=== PATIENT | male | born 1940 | race Caucasian/White ===

== ENCOUNTER → 2017-01-03 08:02 | Outpatient (CLI) | payer MEDICARE, OTHER ==
[2013-04-16 08:49] VITALS: BMI 30.5
[~2017-01-03 08:02] MED LIST: B 100 OR; FISH OIL 1,0001 CA1 PO; FLAXSEED OIL1000 MG PO; LOTREL 10/20 CA1 CAP PO; NORCO 10/325 TA1 TA1 PO; PLAVIX75 MG PO
== END | disposition home or self-care (01) ==
LOC: D.RT 12-04 11:00
DX: J44.9 Chronic obstructive pulmonary disease, unspecified (principal)

== ENCOUNTER → 2017-04-18 13:39 | Outpatient (CLI) | payer MEDICARE, OTHER ==
[2013-04-16 08:49] VITALS: BMI 30.5
== END | disposition home or self-care (01) ==
LOC: D.CT 04-09 10:30
DX: R94.2 Abnormal results of pulmonary function studies (principal)

== ENCOUNTER 2018-01-07 05:43 | Day surgery (SDC) | payer MEDICARE ==
[~2018-01-07] VITALS: Ht 177.8 cm; Wt 111.4 kg
--- NOTE | ~2018-01-07 | OP ---
PATIENT NAME: TATYANA MUNGUIA MEDICAL RECORD: [id number] :40 LOCATION:[facility] ADMISSION DATE: SURGEON: TAMIR BALDERAS DO DATE OF OPERATION: 01/07/2018 PROCEDURE: EGD with biopsies. INDICATIONS FOR PROCEDURE: Dysphagia. SCOPE: Olympus video gastroscope. MEDICATIONS: Propofol IV per anesthesia (see anesthesia report). ESTIMATED BLOOD LOSS: Minimal. COMPLICATIONS: None. FINDINGS: Informed consent was given. The patient was made comfortable with the above medication. After reaching an adequate level of sedation by slow IV push, the patient was placed on his left side. The endoscope was advanced under direct visualization through the mouth to the second portion of the duodenum. The upper, middle, and lower thirds of the esophagus appeared normal. At the GE junction, there was some mild evidence of LA class A reflux-induced esophagitis. Cold forcep biopsies were taken at this site. The endoscope was advanced beyond the GE junction into the stomach and retroflexed view of the cardia, where a small sliding hiatal hernia was visualized. In the fundus and body of the stomach, there were a few benign appearing fundic gland type gastric polyps. In the antrum, there was some patchy erythema and granularity consistent with gastritis. Also, in the antrum and prepyloric region, there were a few superficial ulcerations without bleeding stigmata. Random biopsies were taken in the stomach to rule out H. pylori and to submit for histology. The endoscope was advanced beyond the pylorus into the duodenum where the bulb and second portion of the duodenum appeared normal. Random biopsies were taken in the duodenum. The endoscope was withdrawn from the patient. The patient tolerated the procedure well and there were no complications. IMPRESSION: 1. LA class A reflux-induced esophagitis. 2. Small sliding hiatal hernia. 3. Benign fundic gland gastric polyps. 4. Gastritis. 5. Few superficial gastric ulcers without bleeding stigmata. PLAN AND RECOMMENDATIONS: 1. Discharge home when recovery parameters are met. 2. Follow up biopsy specimen results. 3. Start omeprazole or equivalent PPI at 40 mg daily times 60 days followed by an H2 za daily thereafter as needed for symptoms. 4. If biopsies indicate, there is H. pylori, this will be treated. 5. We will order right upper quadrant ultrasound and a gastric emptying scan regarding the patient's epigastric pain, pain with eating, and early satiety. 6. If the patient's dysphagia becomes a persistent symptom, a barium esophagram and/or manometry study will be ordered. at this time, the patient does not complain of dysphagia as much as epigastric pain. OPERATIVE REPORT [id number] TATYANA MUNGUIA TRANSINT:[id number] Voice Confirmation ID: [id number] DOCUMENT ID: [id number] TAMIR BALDERAS DO at 1119 CC: [id number] DICTATION DATE: 01/07/18 0803 AUTO DISMANTLER: 01/07/18 1053 [facility] 01/07/18 [facility] [address] [place] [address]
[2018-01-07] MEDS ORDERED: ZANAFLEX4 MG PO (06:19)
[2018-01-07] MEDS ORDERED: RESTLESS LEGS (06:20)
[2018-01-07] MEDS ORDERED: NEURONTIN 300300 MG PO (06:20)
[2018-01-07 06:38] VITALS: BP 141/73; Ht 177.8 cm; Wt 111.4 kg
[2018-01-07 07:35] LABS: HEMOGLOBIN 14.3 g/dL (13.5-17.5); MCH 30.7 pg (26.0-34.0); MCV 90.1 fL (80.0-100.0); MEAN PLATELET VOLUME 10.4 fL (7.4-10.4); RBC 4.66 10x6/uL (4.20-6.10); RDW 12.6 % (11.5-14.5); WBC 6.9 10x3/uL (4.8-10.8)
== END 2018-01-07 08:57 | disposition home or self-care (01) ==
LOC: D.OPS 05:43
PROVIDERS: Anesthesiology
DX: R13.10 Dysphagia, unspecified (principal); K21.0 Gastro-esophageal reflux disease with esophagitis; K44.9 Diaphragmatic hernia without obstruction or gangrene; K29.70 Gastritis, unspecified, without bleeding; K31.7 Polyp of stomach and duodenum; Z01.812 Encounter for preprocedural laboratory examination; I10 Essential (primary) hypertension; J44.9 Chronic obstructive pulmonary disease, unspecified

== ENCOUNTER → 2018-01-11 08:17 | Outpatient (CLI) | payer MEDICARE ==
[2018-01-07 06:38] VITALS: BMI 35.2
[~2018-01-11 08:17] MED LIST changes: +NEURONTIN 300300 MG PO; +OMEPRAZOLE40 MG PO; +OXYCONTIN15 MG PO; +REQUIP0.25 MG PO; +RESTLESS LEGS; +ROXICODONE15 MG PO; +VITAMIN B COMPL1 TAB PO; +VITAMIN D31000 UNI2 PO; +ZANAFLEX4 MG PO; +ZITHROMAX 500M500 MG PO
== END | disposition home or self-care (01) ==
LOC: D.US 08:17 → D.NM 09:30
DX: R10.13 Epigastric pain (principal); R68.81 Early satiety; R14.0 Abdominal distension (gaseous)

== ENCOUNTER → 2018-01-15 13:07 | Outpatient (CLI) | payer MEDICARE ==
[2018-01-07 06:38] VITALS: BMI 35.2
[2018-01-15 14:07] LABS: ALBUMIN 3.4 g/dL (3.4-5.0); BILIRUBIN - DIRECT 0.09 mg/dL (0.00-0.30); BILIRUBIN - INDIRECT 0.39 mg/dL (0.00-1.00); BILIRUBIN - TOTAL 0.48 mg/dL (0.2-1.3); PROTEIN - SERUM 6.4 g/dL (6.4-8.2)
[2018-01-16 13:17] LABS: IMMUNOGLOBULIN A 147 mg/dL (61-437)
[2018-01-17 10:20] LABS: ANTIGLIADIN IGA 2 units (0-19); ANTIGLIADIN IGG 1 units (0-19)
[2018-01-17 15:24] LABS: T-TRANSGLUTAMINASE IGA <2 U/mL (0-3)
== END | disposition home or self-care (01) ==
LOC: D.LAB 09:00
PROVIDERS: Internal Medicine Gastroenterology
DX: K76.0 Fatty (change of) liver, not elsewhere classified (principal); R10.13 Epigastric pain; R93.8 Abnormal findings on diagnostic imaging of other specified body structures

== ENCOUNTER 2018-01-21 11:17 | Day surgery (SDC) | payer MEDICARE ==
[~2018-01-21] VITALS: Ht 177.8 cm; Wt 111.4 kg
--- NOTE | ~2018-01-21 | OP ---
PATIENT NAME: TATYANA MUNGUIA MEDICAL RECORD: [id number] :40 LOCATION:[facility] ADMISSION DATE: SURGEON: TAMIR BALDERAS DO DATE OF OPERATION: 01/21/2018 PROCEDURE: Colonoscopy with polypectomy. INDICATIONS FOR PROCEDURE: Screening colonoscopy and a history of colon polyps. His last colonoscopy was on 09/08/2014. SCOPE: Olympus video pediatric colonoscope. MEDICATIONS: Propofol 350 mg IV per anesthesia. WITHDRAWAL TIME: 12 minutes. ESTIMATED BLOOD LOSS: Minimal. COMPLICATIONS: None. FINDINGS: Informed consent was given. The patient was made comfortable with the above medication. After reaching an adequate level of sedation by slow IV push, the patient was placed on his left side. A digital rectal examination was performed and revealed some benign prostatic hyperplasia. The endoscope was then advanced under direct visualization through the rectum to the terminal ileum. The scope was slowly withdrawn and the mucosa was carefully examined. The prep quality was excellent. Retroflexion was performed in the rectum. There were 4 polyps located on today's examination. The first was a benign appearing sessile polyp, which measured approximately 2 mm in diameter and was located in the cecum. It was removed in 1 piece using hot forceps and completely retrieved. The other 3 polyps were all located in the transverse colon. They were benign-appearing and sessile and ranged in size from 3-5 mm in diameter. They were all removed using hot forceps in 1 piece and completely retrieved. There was evidence of mild diverticulosis involving the descending and sigmoid colon without evidence of diverticulitis. On retroflexion in the rectum, there was a normal appearing rectal wall. The endoscope was withdrawn from the patient. The patient tolerated the procedure well and there were no complications. IMPRESSION: 1. Mild diverticulosis of the descending and sigmoid colon. 2. Four polyps as described above removed using hot forceps. 3. Otherwise, normal colonoscopy. PLAN AND RECOMMENDATIONS: 1. Discharge home when recovery parameters are met. 2. Follow up biopsy specimen results. 3. Continue current medications. 4. High fiber diet. 5. Consider supplementation of diet with 1-2 tablespoons of Metamucil or other psyllium husk fiber daily. 6. No further colonoscopies are necessary based on the patient's age, unless symptoms warrant otherwise. If the patient does wish to continue surveillance colonoscopies, I would recommend a repeat in 3-5 years. OPERATIVE REPORT [id number] TATYANA MUNGUIA TRANSINT:[id number] Voice Confirmation ID: [id number] DOCUMENT ID: [id number] TAMIR BALDERAS DO at 1524 CC: [id number] DICTATION DATE: 01/21/18 1424 DISPUTE COORDINATOR: 01/21/18 1540 [facility] [place] 01/21/18 [place] [id number] [place] [id number]
[~2018-01-21 11:17] MED LIST changes: -OMEPRAZOLE40 MG PO; -OXYCONTIN15 MG PO; -REQUIP0.25 MG PO; -ROXICODONE15 MG PO; -VITAMIN B COMPL1 TAB PO; -VITAMIN D31000 UNI2 PO; -ZITHROMAX 500M500 MG PO
[2018-01-21] MEDS ORDERED: OXYCONTIN15 MG PO (11:45)
[2018-01-21] MEDS ORDERED: ROXICODONE15 MG PO (11:46)
[2018-01-21] MEDS ORDERED: REQUIP0.25 MG PO (11:47)
[2018-01-21] MEDS ORDERED: OMEPRAZOLE40 MG PO (11:47)
[2018-01-21 11:55] VITALS: BP 144/82; Ht 177.8 cm; Wt 111.4 kg
[2018-01-21 12:42] LABS: HEMOGLOBIN 15.5 g/dL (13.5-17.5); MCH 30.7 pg (26.0-34.0); MCHC 34.4 g/dL (31.0-37.0); MCV 89.1 fL (80.0-100.0); MEAN PLATELET VOLUME 10.7 fL (7.4-10.4); RBC 5.05 10x6/uL (4.20-6.10); RDW 12.7 % (11.5-14.5); WBC 7.5 10x3/uL (4.8-10.8)
== END 2018-01-21 15:19 | disposition home or self-care (01) ==
LOC: D.OPS 11:17
PROVIDERS: Anesthesiology
DX: Z86.010 Personal history of colon polyps (principal); D12.0 Benign neoplasm of cecum; D12.3 Benign neoplasm of transverse colon; I10 Essential (primary) hypertension; J44.9 Chronic obstructive pulmonary disease, unspecified; G47.30 Sleep apnea, unspecified

== ENCOUNTER 2018-01-29 11:34 | Inpatient (IN) | payer MEDICARE ==
[~2018-01-29] VITALS: Ht 177.8 cm; Wt 112.0 kg
[~2018-01-29 11:34] MED LIST changes: +OMEPRAZOLE40 MG PO; +OXYCONTIN15 MG PO; +REQUIP0.25 MG PO; +ROXICODONE15 MG PO
[2018-01-29 12:25] LABS: BASOPHILS 0.1 % (0-2); EOSINOPHILS 0.5 % (0-7); HEMATOCRIT 43.3 % (42.0-54.0); HEMOGLOBIN 14.9 g/dL (13.5-17.5); IMMATURE GRANULOCYTES 0.3 % (0-5); LYMPHOCYTES 5.5 % (15-50); MCHC 34.4 g/dL (31.0-37.0); MEAN PLATELET VOLUME 9.9 fL (7.4-10.4); MONOCYTES 7.1 % (2-11); NEUTROPHILS 86.5 % (40-80); PLATELET COUNT 214 10x3/uL (130-400); RBC 4.81 10x6/uL (4.20-6.10); RDW 12.7 % (11.5-14.5); WBC 18.3 10x3/uL (4.8-10.8)
[2018-01-29 12:39] LABS: ALBUMIN 3.3 g/dL (3.4-5.0); ANION GAP 12.6 mmol/L (8-16); BILIRUBIN - TOTAL 0.88 mg/dL (0.2-1.3); CALCIUM 8.7 mg/dL (8.5-10.1); CREATININE - SERUM 1.1 mg/dL (0.6-1.3); POTASSIUM - SERUM 4.6 mmol/L (3.5-5.1); PROTEIN - SERUM 6.6 g/dL (6.4-8.2)
[2018-01-29 13:31] LABS: APPEARANCE CLEAR (CLEAR); BILIRUBIN NEGATIVE (NEGATIVE); COLOR YELLOW (YELLOW); GLUCOSE NEGATIVE (NEGATIVE); KETONE NEGATIVE (NEGATIVE); NITRITE NEGATIVE (NEGATIVE); PROTEIN NEGATIVE (NEGATIVE)
[2018-01-29 13:32] LABS: UROBILINOGEN NORMAL (NORMAL)
[2018-01-29 14:18] LABS: INR 1.03 (0.85-1.17); PROTIME 13.1 SECONDS (11.6-15.0)
[2018-01-29 14:19] LABS: APTT 24.8 SECONDS (22.8-39.4)
[2018-01-29 14:37] LABS: CKMB 0.1 U/L (0.0-3.6); CREATINE KINASE 45 UL (21-232); PRO BNP 82 pg/mL (0-450)
[2018-01-29 16:54] LABS: CREATINE KINASE 23 UL (21-232)
[2018-01-29 16:55] LABS: TROPONIN-I < 0.017 ng/mL (0.000-0.060)
[2018-01-29 22:31] LABS: CKMB 0.2 U/L (0.0-3.6); CREATINE KINASE 25 UL (21-232); TROPONIN-I < 0.017 ng/mL (0.000-0.060)
[2018-01-29] MEDS ORDERED: VITAMIN D31000 UNI2 PO (22:42)
[2018-01-29] MEDS ORDERED: VITAMIN B COMPL1 TAB PO (22:44)
[2018-01-30 04:00] VITALS: BP 114/49
[2018-01-30 04:17] VITALS: BP 145/61; BMI 35.5
[2018-01-30 05:03] LABS: BASOPHILS 0.2 % (0-2); EOSINOPHILS 1.7 % (0-7); HEMATOCRIT 36.3 % (42.0-54.0); IMMATURE GRANULOCYTES 0.3 % (0-5); LYMPHOCYTES 20.6 % (15-50); MCH 30.2 pg (26.0-34.0); MCHC 33.1 g/dL (31.0-37.0); MCV 91.4 fL (80.0-100.0); MONOCYTES 7.6 % (2-11); NEUTROPHILS 69.6 % (40-80); PLATELET COUNT 194 10x3/uL (130-400); RBC 3.97 10x6/uL (4.20-6.10)
[2018-01-30 05:08] LABS: WBC 12.8 10x3/uL (4.8-10.8)
[2018-01-30 05:47] LABS: ALBUMIN 2.6 g/dL (3.4-5.0); ALKALINE PHOSPHATASE 70 U/L (46-116); ALT (SGPT) 36 U/L (10-68); CALC OSMOLALITY 279 mosm/kg (275-300); CALCIUM 7.9 mg/dL (8.5-10.1); CARBON DIOXIDE 31.3 mmol/L (21.0-32.0); CHLORIDE - SERUM 103 mmol/L (98-107); CKMB 0.4 U/L (0.0-3.6); CREATINE KINASE 25 UL (21-232); CREATININE - SERUM 0.9 mg/dL (0.6-1.3); GLUCOSE 126 mg/dL (74-106); POTASSIUM - SERUM 4.2 mmol/L (3.5-5.1); PROTEIN - SERUM 5.4 g/dL (6.4-8.2); SODIUM 138 mmol/L (136-145); TROPONIN-I < 0.017 ng/mL (0.000-0.060); UREA NITROGEN 18 mg/dL (7-18); eGFR NON AFRICAN AMERICAN 87 mL/min (90-120)
[2018-01-30 08:29] VITALS: BP 124/59
[2018-01-30 17:10] VITALS: Ht 177.8 cm; Wt 112.0 kg
[2018-01-30 18:39] VITALS: BP 123/54
[2018-01-30 19:00] VITALS: BP 136/57
[2018-01-31 04:00] VITALS: BP 149/66
[2018-01-31 08:36] VITALS: BP 139/58
[2018-01-31 11:52] VITALS: BP 123/60
[2018-01-31 15:40] VITALS: BP 126/54
[2018-01-31 20:00] VITALS: BP 137/56
[2018-02-01] VITALS: BP 137/52
[2018-02-01 05:50] VITALS: BP 118/45
[2018-02-01 08:16] VITALS: BP 142/68
[2018-02-01] MEDS ORDERED: ZITHROMAX 500M500 MG PO (11:09)
[2018-02-01 11:23] VITALS: BP 148/59
== END 2018-02-01 14:10 | disposition home or self-care (01) | DRG 195 ==
LOC: D.ER 11:34 → D.M2 15:27 → D.EDHOLD 15:27 → D.M2 20:29
PROVIDERS: Family Medicine
DX: J18.9 Pneumonia, unspecified organism (principal); M54.2 Cervicalgia; R00.1 Bradycardia, unspecified

== ENCOUNTER → 2018-02-27 13:22 | Outpatient (CLI) | payer MEDICARE ==
[2018-01-30 17:10] VITALS: BMI 35.5
[~2018-02-27 13:22] MED LIST changes: +VITAMIN B COMPL1 TAB PO; +VITAMIN D31000 UNI2 PO; +ZITHROMAX 500M500 MG PO
== END | disposition home or self-care (01) ==
LOC: D.RAD 13:15 → D.CT 13:30
DX: N20.0 Calculus of kidney (principal)

== ENCOUNTER → 2018-03-28 06:50 | Outpatient (CLI) | payer MEDICARE ==
[2018-01-30 17:10] VITALS: BMI 35.5
[~2018-03-28 06:50] MED LIST changes: +BACTRIM DS TABL1 TAB PO; +FLOMAX0.4 MG PO; +FUROSEMIDE20 MG PO; +RESTORIL15 MG PO; +ZANTAC150 MG PO
== END | disposition home or self-care (01) ==
LOC: D.MRI 06:50
DX: N28.89 Other specified disorders of kidney and ureter (principal)

== ENCOUNTER 2018-04-04 05:10 | Day surgery (SDC) | payer MEDICARE ==
[2018-04-02 10:28] LABS: HEMATOCRIT 43.6 % (42.0-54.0); MCH 30.7 pg (26.0-34.0); MCHC 34.4 g/dL (31.0-37.0); MCV 89.2 fL (80.0-100.0); MEAN PLATELET VOLUME 9.8 fL (7.4-10.4); RBC 4.89 10x6/uL (4.20-6.10)
[2018-04-02 10:45] LABS: CALC OSMOLALITY 281 mosm/kg (275-300); CALCIUM 9.4 mg/dL (8.5-10.1); CHLORIDE - SERUM 103 mmol/L (98-107); CREATININE - SERUM 0.9 mg/dL (0.6-1.3); GLUCOSE 120 mg/dL (74-106); POTASSIUM - SERUM 4.1 mmol/L (3.5-5.1); SODIUM 141 mmol/L (136-145); UREA NITROGEN 12 mg/dL (7-18); eGFR NON AFRICAN AMERICAN 87 mL/min (90-120)
[~2018-04-04] VITALS: Ht 177.8 cm; Wt 108.9 kg
--- NOTE | ~2018-04-04 | OP ---
PATIENT NAME: TATYANA MUNGUIA MEDICAL RECORD: [id number] :40 LOCATION:D.[facility] ADMISSION DATE: SURGEON: TAL ASHFORD MD DATE OF OPERATION: 04/04/2018 SURGEON: Tal Ashford MD ANESTHESIA: General anesthesia by Lloyd Regan CRNA. DIAGNOSIS: Right 10-mm renal stone. PROCEDURES: Cystoscopy, right retrograde pyelogram, right ureteral stent insertion, 6-Greenlandic x 26 cm with string attached. FINDINGS: Radiodense right renal stones 10 mm, obstructive BPH with trilobar hyperplasia. Single ureteral orifices bilaterally. Heavily trabeculated bladder with diverticula. No bladder tumors. BLOOD LOSS: None. CLINICAL HISTORY: This is a 77-year-old male, who has a known right renal stone. On CT scan, 10-mm in size in the right lower pole. After discussion with the patient on treatment options, namely ESWL with a stent versus right PCNL, he chose to have lithotripsy. Today, we are inserting a right ureteral stent and later today, he will be having lithotripsy. HE IS ALLERGIC TO CODEINE, MORPHINE, PENICILLIN, AND PRAVASTATIN. He had cardiology clearance by Dr. Fu. We gave him Levaquin IV electronic lab technician to the OR. DESCRIPTION OF PROCEDURE: The patient was given induction of general anesthesia. He was placed in dorsal lithotomy position and prepped and draped. A 21-Greenlandic cystoscope with 30-degree lens was used for visualization. The patient has a normal penile urethra. No strictures were seen. The prostatic urethra is obstructive with quite large median lobe. The lateral lobes are somewhat enlarged, but they do not seem to be meeting in the midline. Going into the bladder, the bladder was somewhat inflamed. There are single ureteral orifices on each side. The bladder was heavily trabeculated with cellules and diverticula. No bladder tumors were seen. The right ureteral orifice was intubated with an open-ended ureteral catheter. Fluoroscopy revealed a possible radiodensity in the kidney. We injected diluted contrast and this confirmed that the radiodensity was a kidney stone. Through the lumen of the ureteral catheter, we inserted a Sensor wire up to the renal pelvis. The ureteral catheter was then removed entirely, leaving the wire in place. Over the wire, we inserted the 6-Greenlandic x 26-cm ureteral stent. Once the stent was in correct position, the wire was withdrawn entirely. The distal end of the stent was pushed into the bladder using the pusher. The bladder was then emptied through the cystoscope and the scope was removed. The string on the distal end of the stent is maintained. It hangs out of the penile urethra. We tied the string to itself in a knot and cut it shorter. The patient was brought to the recovery room. Later today when the lithotripsy truck arrives, we will treat him with right ESWL. TRANSINT:[id number] Voice Confirmation ID: [id number] DOCUMENT ID: [id number] OPERATIVE REPORT [id number] TATYANA MUNGUIA, TAL Moreau MD at 1030 CC: [id number] DICTATION DATE: 04/04/18820 PANTRY GOODS MAKER: 04/04/18 09 REG [facility] [address] [place] [address]
[~2018-04-04 05:10] MED LIST changes: -BACTRIM DS TABL1 TAB PO; -FLOMAX0.4 MG PO; -FUROSEMIDE20 MG PO
[2018-04-04 06:04] VITALS: BP 135/69; Ht 177.8 cm; Wt 108.9 kg
[2018-04-23] MEDS ORDERED: FUROSEMIDE20 MG PO (15:00)
[2018-04-23] MEDS ORDERED: FLOMAX0.4 MG PO (15:01)
== END 2018-04-04 13:05 | disposition home or self-care (01) ==
LOC: D.OPS 05:10 → D.PAN 07:30 → D.OPS 07:30 → D.PAN 09:00 → D.OPS 13:05
PROVIDERS: Anesthesiology
DX: N20.0 Calculus of kidney (principal); N40.1 Benign prostatic hyperplasia with lower urinary tract symptoms; N13.8 Other obstructive and reflux uropathy; N32.89 Other specified disorders of bladder; N32.3 Diverticulum of bladder; Z01.812 Encounter for preprocedural laboratory examination; Z88.5 Allergy status to narcotic agent; Z88.0 Allergy status to penicillin; Z88.8 Allergy status to other drugs, medicaments and biological substances

== ENCOUNTER → 2018-04-05 17:58 | Outpatient (CLI) | payer MEDICARE ==
[2018-04-04 06:04] VITALS: BMI 34.5
[~2018-04-05 17:58] MED LIST changes: +BACTRIM DS TABL1 TAB PO; +FLOMAX0.4 MG PO; +FUROSEMIDE20 MG PO
== END | disposition home or self-care (01) ==
LOC: D.LABREF 17:58
DX: N39.0 Urinary tract infection, site not specified (principal); R31.9 Hematuria, unspecified; D72.829 Elevated white blood cell count, unspecified

== ENCOUNTER → 2018-04-18 07:59 | Outpatient (CLI) | payer MEDICARE ==
[2018-04-04 06:04] VITALS: BMI 34.5
[~2018-04-18 07:59] MED LIST changes: +MACRODANTIN100 MG PO; +PROSCAR5 MG PO; +TORADOL10 MG PO
== END | disposition home or self-care (01) ==
LOC: D.CT 04-11 08:30
DX: N20.0 Calculus of kidney (principal)

== ENCOUNTER → 2018-04-22 16:56 | Outpatient (CLI) | payer MEDICARE ==
[2018-04-04 06:04] VITALS: BMI 34.5
== END | disposition home or self-care (01) ==
LOC: D.LABREF 16:56
DX: N39.0 Urinary tract infection, site not specified (principal)

== ENCOUNTER 2018-04-24 09:00 | Inpatient (IN) | payer MEDICARE ==
[2018-04-23 16:27] LABS: BASOPHILS 0.1 % (0-2); EOSINOPHILS 1.9 % (0-7); HEMATOCRIT 42.3 % (42.0-54.0); HEMOGLOBIN 14.5 g/dL (13.5-17.5); IMMATURE GRANULOCYTES 0.3 % (0-5); LYMPHOCYTES 19.7 % (15-50); MCH 30.4 pg (26.0-34.0); MCHC 34.3 g/dL (31.0-37.0); MCV 88.7 fL (80.0-100.0); MONOCYTES 10.1 % (2-11); NEUTROPHILS 67.9 % (40-80); PLATELET COUNT 201 10x3/uL (130-400); RBC 4.77 10x6/uL (4.20-6.10); RDW 12.8 % (11.5-14.5); WBC 6.7 10x3/uL (4.8-10.8)
[~2018-04-24] VITALS: Ht 177.8 cm; Wt 110.5 kg
--- NOTE | ~2018-04-24 | OP ---
PATIENT NAME: TATYANA MUNGUIA MEDICAL RECORD: [id number] :40 LOCATION:D[id number] ADMISSION DATE:04/26/18 SURGEON: LIBBY ASHFORD MD DATE OF OPERATION: 05/01/2018 SURGEON: Libby Ashford MD ANESTHESIA: General anesthesia by Elliot Graff CRNA PREOPERATIVE DIAGNOSES: Infected right lower pole renal stone. Right pyelonephritis with Staphylococcus epidermidis. PROCEDURES: Cystoscopy, right percutaneous nephrolithotomy. FINDINGS: Radiolucent 10 mm lower pole stone, anterior and inferior to previous nephrostomy tract. BLOOD LOSS: Minimal. SPECIMENS: Right renal stone. CLINICAL HISTORY: This is a 77-year-old male, whom I initially saw with renal colic for right renal stone. He had a ureteral stent insertion and we attempted to perform lithotripsy on the patient. However, when he was put on the lithotripsy table, we noticed that the stone was not radio dense at all and could not be visualized. Even with IV contrast injection, the stone could not be visualized. Therefore, on the assumption that this may be uric acid stone, he was put on potassium citrate to try to dissolve the uric acid stone. After 2 weeks of treatment, the patient was reporting fevers and chills and rigors consistent with a pyelonephritis. His repeat CT scan showed that the stone was unchanged in size and therefore it is not uric acid in composition. He was admitted to hospital. We made plans to perform a right percutaneous nephrolithotomy. This was actually performed on 04/24/2018. At that time, I could not visualize the stone. The patient was kept in hospital with the nephrostomy tube in place. His urine culture eventually grew Staph epidermidis, which was resistant to the Levaquin that I have been giving him empirically. He was changed to IV gentamicin. He went back to the interventional radiology suite and another nephrostomy access was placed. Since radiology cannot see the stone either on fluoroscopy, we had to insert an access at the most likely location of the stone based on the CT. He comes today to have a repeat right percutaneous nephrolithotomy to try to get this infected stone out. Since he is already on IV gentamicin on the floor, we did not give him any further IV antibiotics in the OR. DESCRIPTION OF PROCEDURE: The patient was given induction of general anesthetic while he was in supine position on the stretcher. He was then placed in frog-leg position and prepped and draped. Cystoscopy was performed. I grasped the distal end of the nephroureteral stent and pulled it out through the penile meatus. The patient was then turned into prone position on the Rony frame. As I attempted to remove the old nephrostomy tube, I found that the nephroureteral access that had been put in, was actually through the Malecot wings of the old nephrostomy tube. As I pulled the old nephrostomy tube up, I could see that the new access was being pulled out along with the nephrostomy tube. Therefore, I had to cut the wings of the old nephrostomy tube in order to free the nephroureteral access. As a result of the nephroureteral access OPERATIVE REPORT [id number] TATYANA MUNGUIA E catheter getting pulled up proximally, it was no longer coming out through the penile urethral meatus. The patient was prepped and draped. On fluoroscopy, the nephroureteral access was still in the ureter. An Amplatz Super Stiff wire was placed down the nephroureteral catheter into the bladder. The nephroureteral catheter was then removed entirely while the Super Stiff wire was in place. A small incision was made on either side of the wire using a #15 blade. The dual lumen catheter was placed into the proximal ureter through the Super Stiff wire. In the second lumen, we placed a Sensor wire into the ureter and down all the way to the bladder. Once the [address], the dual lumen catheter was removed, leaving the wires in position. The Sensor wire was clamped to the drapes as a safety wire. We worked over the Super Stiff wire. The NephroMax balloon dilator was then placed over the wire and the tract was dilated with 20 atmospheres of pressure. The 30-Urdu working sheath was then slid down over the balloon into the renal pelvis. The balloon was then completely deflated and removed entirely. The nephroscope was then placed into the right kidney. Starting at the ureteropelvic junction and working more laterally, I examined each of the calices in turn. I started at the upper pole and worked my way towards the inferior pole. I did see the location of the tacho that the previous nephrostomy tube had entered through. As I continued to look inferior to this site and anterior, I finally visualized the stone. I tried to remove the stone with graspers, but it was located in an awkward position that I only got a fragment of the stone out with graspers. The rest of the stone was removed using the Mongolian LithoClast ultrasound modality. We did entirely remove the stone. Further nephroscopy showed no other stone fragments to be present. At this point, the procedure was coming to a close. The scope was removed. The Malecot nephrostomy tube was placed down over the wire through the working sheath into the renal pelvis. The working sheath and both of the wires were removed entirely. The nephrostomy tube was sutured to the skin using 2-0 silk. Dressings were applied and the nephrostomy tube was put to bag drainage. The patient was awakened. The Ortega catheter was removed prior to his fully awakening. The patient will be brought back to his hospital bed. TRANSINT:[id number] Voice Confirmation ID: [id number] DOCUMENT ID: [id number] LIBBY ASHFORD MD at 1225 CC: [id number] DICTATION DATE: 05/01/18 0949 RESIDENTIAL BUILDER: 05/01/18 1141 ADM IN [facility] [address] [place] [address]
--- NOTE | ~2018-04-24 | HEMODYNAMI ---
PATIENT:TATYANA MUNGUIA MEDICAL RECORD: [id number] : 40 LOCATION:D.MS [id number] ADMISSION DATE: 04/26/18 Generatedon:04/26/201815:59 Patient name: TATYANA MUNGUIA Patient #: [id number] SSN: : 1940 Date of study: 04/26/2018 Page: Of Hemodynamic Procedure Report Patient Data Patient Demographics Procedure consent was obtained First Name: TATYANA Gender: Male Last Name: EZRA : 1940 Middle Initial: E Age: 77 year(s) Patient #: [id number] Race: Unknown Additional ID: [id number] Contact details Address: [address] [place] [address] ROAD State: [place] City: [place] Zip code: [address] Past Medical History Allergies Allergen Reaction Date Comments Reported Codeine 04/24/2018 Morphine 04/24/2018 Penicillins 04/24/2018 Codeine 04/26/2018 Morphine 04/26/2018 Penicillins 04/26/2018 Admission Admission Data Admission Date: 04/26/2018 Admission Time: 15:25 Room #: [id number] Height (in.): 70 BSA: 2.27 (m2) Height (cm.): 177.8 BMI: 34.87 (kg/m2) Weight (lbs.): 243 Weight (kg.): 110.22 Procedure Procedure Types Cath Procedure Peripheral Cath Diagnostic Procedure Cath Peripheral Nephro Perc Neph Uret Cath Procedure Description Procedure Date Procedure Date: 04/26/2018 Procedure Start Time: 14:31 Procedure Staff Name Function Dustin Hughes MD Performing Physician Nora Valverde RT Alarm Investigator Allison Piña RN Nurse Eliel Torrez RT Scrub Procedure Data Cath Procedure Fluoroscopy Diagnostic fluoroscopy Total fluoroscopy Time: 0 time: 0 min min Contrast Material Contrast Material Type Amount (ml) Isovue 300 160 Procedure Medications Medication Administration Route Dosage Oxygen etCO2 Nasal cannula 4 l/min Lidocaine 1% added to field 20 Heparin Flush Bag added to field 2 bags (1000units/500ml NS) Versed I.V. 2 mg Fentanyl I.V. 50 mcg unlisted medication I.V. 1 g Fentanyl I.V. 50 mcg Fentanyl I.V. 50 mcg Versed I.V. 1 mg Versed I.V. 1 mg Fentanyl I.V. 50 mcg Fentanyl I.V. 50 mcg Versed I.V. 2 mg Fentanyl I.V. 50 mcg Hemodynamics Rest BSA: 2.27 (m2) O2 Consumption: Estimated: 250.66 (ml/min) O2 Consumption indexed : Estimated:110.42 (ml/min/m) Heart Rate: 59 (bpm) Snapshots Pre Cath Intra NCS Post Cath Vital Signs Time Heart Resp SPO2 etCO2 NIBP (mmHg) Rhythm Pain Sedation Rate (ipm) (%) (mmHg) Status Level (bpm) 14:21:56 58 15 98 28.6 No Cuff SB 0 (11) 10(A) , No pain 14:26:49 73 14 98 16.5 148/69(112) NSR 0 (11) 10(A) , No pain 14:31:25 64 6 98 38.3 117/81(88) NSR 0 (11) 10(A) , No pain 14:35:46 57 12 32.3 132/67(114) SB 0 (11) 8(A) , No pain 14:40:06 59 13 97 33.8 131/72(110) SB 0 (11) 8(A) , No pain 14:44:26 61 0 98 33.8 136/67(106) NSR 0 (11) 8(A) , No pain 14:49:25 65 22 93 27.8 Measuring NSR 0 (11) 8(A) , No pain 14:49:35 64 21 93 33.1 102/77(99) NSR 0 (11) 8(A) , No pain 14:54:34 62 5 97 27.8 Measuring NSR 0 (11) 8(A) , No pain 14:54:48 60 14 97 29.3 135/70(103) NSR 0 (11) 8(A) , No pain 14:59:15 61 9 95 33.1 132/70(107) NSR 0 (11) 8(A) , No pain 15:03:37 62 13 95 34.5 134/67(104) NSR 0 (11) 8(A) , No pain 15:07:57 62 13 92 36 129/67(105) NSR 0 (11) 8(A) , No pain 15:12:19 59 10 95 42.1 122/70(103) NSR 0 (11) 8(A) , No pain 15:16:48 62 16 39.1 135/67(99) NSR 0 (11) 8(A) , No pain 15:21:12 58 16 40.6 139/67(115) SB 0 (11) 8(A) , No pain 15:26:11 58 11 48.8 Measuring SB 0 (11) 8(A) , No pain 15:27:33 63 8 94 46.6 119/62(84) NSR 0 (11) 8(A) , No pain 15:31:53 62 7 94 30.8 119/66(91) NSR 0 (11) 8(A) , No pain 15:36:15 62 16 94 30.8 120/64(103) NSR 0 (11) 8(A) , No pain 15:41:14 60 5 94 30.8 Measuring NSR 0 (11) 8(A) , No pain 15:41:47 58 8 94 36.8 127/64(106) SB 0 (11) 8(A) , No pain 15:46:09 58 17 94 25.5 134/79(104) SB 0 (11) 8(A) , No pain 15:50:33 64 6 95 19.5 137/76(112) SB 0 (11) 8(A) , No pain 15:54:59 60 17 95 37.6 139/74(119) SB 0 (11) 8(A) , No pain Medications Time Medication Route Dose Verified Delivered Reason Notes Effec tiveness by by 14:35:01 Oxygen etCO2 4 Dustin Cooper Per Nasal l/min Wang Hughes RN protocol cannula 14:35:15 Lidocaine 1% added 20ml Dustin Chan Per to vial Ellen Hughes MD protocol field BEY 14:35:28 Heparin Flush added 2 Dustin Chan Per Bag to bags Ellen Hughes MD protocol (1000units/500ml field BEY NS) 14:35:41 Versed I.V. 2 mg Dustin Cooper for Dozin g Wang Hughes RN sedation intermittently MD @ 14:56:11 14:35:51 Fentanyl I.V. 50 Dustin Cooper for Dozin g Wang Medina RN sedation intermittently MD @ 14:57:34 14:37:25 cefepime I.V. 1g Dustin Cooper Per Wang Hughes RN protocol MD 14:39:47 Fentanyl I.V. 50 Dustin Cooper for Dozin g Wang Medina RN sedation intermittently MD @ 14:57:38 14:54:22 Fentanyl I.V. 50 Wang Godoy RN sedation MD 14:55:57 Versed I.V. 1 mg Wang Gutierrez RN sedation MD 15:02:49 Versed I.V. 1 mg Dustin Cooper for Dozin g Wang Hughes RN sedation intermittently MD @ 15:20:50 15:02:59 Fentanyl I.V. 50 Dustin Cooper for Domesfinn g Wang Medina RN sedation intermittently MD @ 15:20:53 15:21:02 Fentanyl I.V. 50 Dustin Cooper for Dozin g Wang Medina RN sedation intermittently MD @ 15:26:40 15:21:13 Versed I.V. 2 mg Dustin Cooper for Ethan g Wang Hughes RN sedation intermittently MD @ 15:26:42 15:40:06 Fentanyl I.V. 50 Dustin Cooper for Jefferyn g Wang Medina RN sedation intermittently MD @ 15:49:48 Procedure Log Time Note 13:48:26 Patient Height : 70 inches 13:48:26 Patient Weight : 243 lbs 13:48:41 Time tracking: Regular hours (M-F 7:00 - 5:00) 13:49:08 Patient received from Med/Surg to IR Alert and oriented. Tansferred to table in Prone position. 13:49:13 Signed procedure consent form obtained from patient. 13:49:19 H&P Date Dictated: 04/26/2018 Within 30 days and on chart.. 13:49:21 Pre-procedure instructions explained to patient. 13:49:22 Pre-op teaching completed and patient verbalized understanding. 13:49:26 Family in patients room. 13:49:30 Patient NPO since Breakfast. 13:49:43 Patient allergic to Codeine 13:49:49 Patient allergic to Morphine 13:50:07 Patient allergic to Penicillins 13:50:13 Is the patient allergic to Iodine/contrast media? No. 13:50:17 Is patient on blood thinner?No 13:50:20 Patient diabetic? No. 13:50:24 - 13:50:25 ----Pre-sedation anethsthesia assessment.---- 13:50:28 Previous problem with sedation/anesthesia? No ? 13:50:32 Snore? Yes 13:50:35 Sleep apnea? No 13:50:38 Deviated septum? No 13:50:42 Opens mouth fully? Yes 13:50:45 Sticks out tongue? Yes 13:50:51 Airway obstruction? Yes copd 13:50:56 Dentures? No ? 13:51:29 IV patent on arrival in right hand with D5/.45%NaCl at [facility]. 13:51:43 Right abdomen area was prepped with chlora-prep and draped in sterile fashion 13:52:12 - 14:01:50 Use device set IR Diagnostic 14:01:52 Tegaderm 4 x 4 ([id number]) opened to sterile field. 14:01:53 Sterile Angiographic Pack opened to sterile field. 14:01:54 Bag Decanter () opened to sterile field. 14:02:07 KIT, INTRODUCER ACCUSTICK II W/C ([id number]) opened to sterile field. 14:02:14 GLIDE WIRE Angled Super Stiff 180cm ([id number]) opened to sterile field. 14:21:03 ECG and BP/O2 sat monitors applied to patient. 14:21:05 Vital chart was started 14:21:07 Baseline sample Acquired. 14:21:08 Full Disclosure recording started 14:21:10 - 14::57 Physician arrived 14::16 --------ALL STOP TIME OUT------ 14:29:17 Final Timeout: patient, procedure, and site verified with staff and physician. All members of the team are in agreement. 14:31:34 Procedure started. 14:31:44 Local anesthetic to Abdominal area with Lidocaine 1% by Dustin Hughes MD.INITIAL ACCESS ONLY 14:33:52 NITINOL .018 80cm wire ([id number]) opened to sterile field. 14:35:01 Oxygen 4 l/min etCO2 Nasal cannula was administered by Allison Piña RN; Per protocol; 14:35:15 Lidocaine 1% 20ml vial added to field was administered by Dustin Hughes MD; Per protocol; 14:35:28 Heparin Flush Bag (1000units/500ml NS) 2 bags added to field was administered by Dustin Hughes MD; Per protocol; 14:35:41 Versed 2 mg I.V. was administered by Allison Piña RN; for sedation; 14:35:51 Fentanyl 50 mcg I.V. was administered by Allison Piña RN; for sedation; 14:37:25 cefepime 1g I.V. was administered by Allison Piña RN; Per protocol; 14:39:47 Fentanyl 50 mcg I.V. was administered by Allison Piña RN; for sedation; 14:54:22 Fentanyl 50 mcg I.V. was administered by Allison Piña RN; for sedation; 14:55:57 Versed 1 mg I.V. was administered by Allison Piña RN; for sedation; 14:56:11 Effectiveness of Versed delivered @ 14:35:41 is: Dozing intermittently 14:57:34 Effectiveness of Fentanyl delivered @ 14:35:51 is: Dozing intermittentl y 14:57:38 Effectiveness of Fentanyl delivered @ 14:39:47 is: Dozing intermittentl y 15:02:49 Versed 1 mg I.V. was administered by Allison Piña RN; for sedation; 15::59 Fentanyl 50 mcg I.V. was administered by Allison Piña RN; for sedation; 15:20:50 Effectiveness of Versed delivered @ 15:02:49 is: Dozing intermittently 15:20:53 Effectiveness of Fentanyl delivered @ 15::59 is: Dozing intermittentl y 15:21:02 Fentanyl 50 mcg I.V. was administered by Allison Piña RN; for sedation; 15:21:13 Versed 2 mg I.V. was administered by Allison Piña RN; for sedation; 15:26:40 Effectiveness of Fentanyl delivered @ 15:21:02 is: Dozing intermittentl y 15:26:42 Effectiveness of Versed delivered @ 15:21:13 is: Dozing intermittently 15:40:06 Fentanyl 50 mcg I.V. was administered by Allison Piña RN; for sedation; 15:47:32 GLIDE CATHETER 4FR Straight 65cm (CG412) opened to sterile field. 15:49:45 TORQUE DEVICE PLASTIC .038 ( TD01) opened to sterile field. 15:49:48 Effectiveness of Fentanyl delivered @ 15:40:06 is: Dozing intermittentl y 15:53:06 Procedure ended.(Physican Out) 15:53:44 Contrast amount:Isovue 300 160ml. 15:53:51 Fluoroscopy time 00.00 minutes. 15:54:23 Procedure and supply charges have been captured, reviewed, submitted an d are correct. 15:59:13 Report given to Med/Surg. 15:59:36 Vital chart was stopped Device Usage Item Name Manufacture Quantity Catalog Hospital Part Current Minimal Lot# / Number Charge Number Stock Stock Serial# Code Tegaderm 4 x 3M 1 [id number] 5 4 (1626W) Sterile Cardinal 1 [id number] 164690 5 Angiographic Health Pack Bag Decanter Microtek 1 [id number] 69574 595296 5 () [employer] KIT, [place] 1 [id number] 994908 [id number] 054921 5 INTRODUCER Scientific ACCUSTICK II W/C ([id number]) GLIDE WIRE Terumo 1 [id number] 423262 296036 5 Angled Super Stiff 180cm (WO6327) NITINOL .018 Medtronic 1 [id number] [id number] 971116 5 80cm wire ([id number]) GLIDE Terumo 1 CG412 186759 379763 5 CATHETER 4FR Straight 65cm (CG412) TORQUE [place] 1 TD01 981819 644920 392519 5 DEVICE Scientific PLASTIC .038 ( TD01) Signature Audit [place] Stage Time Signature Unsigned Intra-Procedure 04/26/2018 Nora Valverde 3:59:32 PM RT(R) [place] [id number] [place] [address]
--- NOTE | ~2018-04-24 | HEMODYNAMI ---
PATIENT:TATYANA MUNGUIA MEDICAL RECORD: [id number] : 40 LOCATION:JUAN ADMISSION DATE: 04/24/18 Generatedon:04/24/201813:08 Patient name: TATYANA MUNGUIA Patient #: [id number] SSN: : 1940 Date of study: 04/24/2018 Page: Of Hemodynamic Procedure Report Patient Data Patient Demographics Procedure consent was obtained First Name: TATYANA Gender: Male Last Name: EZRA : 1940 Middle Initial: E Age: 77 year(s) Patient #: [id number] Race: Unknown Additional ID: [id number] Contact details Address: [address] [place] [address] ROAD State: [place] City: [place] Zip code: [address] Past Medical History Allergies Allergen Reaction Date Comments Reported Codeine 04/24/2018 Morphine 04/24/2018 Penicillins 04/24/2018 Admission Admission Data Admission Date: 04/24/2018 Admission Time: 9:00 Height (in.): 70 BSA: 2.27 (m2) Height (cm.): 177.8 BMI: 34.87 (kg/m2) Weight (lbs.): 243 Weight (kg.): 110.22 Procedure Procedure Types Cath Procedure Peripheral Cath Diagnostic Procedure Cath Peripheral Nephro Perc Neph Uret Cath Procedure Description Procedure Date Procedure Date: 04/24/2018 Procedure Start Time: 12:40 Procedure Staff Name Function Ramandeep Enrique MD Performing Physician Nora Valverde RT Larriman Helper Ingrid Lim RN Nurse Eliel Torrez RT Scrub Procedure Data Cath Procedure Fluoroscopy Diagnostic fluoroscopy Total fluoroscopy Time: 3.6 time: 3.6 min min Diagnostic fluoroscopy Total fluoroscopy dose: 107 dose: 107 mGy mGy Contrast Material Contrast Material Type Amount (ml) Isovue 300 35 Procedure Medications Medication Administration Route Dosage Lidocaine 1% added to field 20 Heparin Flush Bag added to field 2 bags (1000units/500ml NS) Versed I.V. 1 mg Fentanyl I.V. 50 mcg unlisted medication 1 Versed I.V. 1 mg Fentanyl I.V. 50 mcg Versed I.V. 2 mg Fentanyl I.V. 100 mcg Hemodynamics Rest BSA: 2.27 (m2) O2 Consumption: Estimated: 266.98 (ml/min) O2 Consumption indexed : Estimated:117.61 (ml/min/m) Heart Rate: 78 (bpm) Snapshots Pre Cath Intra NCS Post Cath Vital Signs Time Heart Resp SPO2 etCO2 NIBP (mmHg) Rhythm Pain Sedation Rate (ipm) (%) (mmHg) Status Level (bpm) 12:26:54 60 13 28.5 166/94(135) NSR 0 (11) 10(A) , No pain 12:31:16 61 13 99 39.1 155/90(131) NSR 0 (11) 10(A) , No pain 12:35:46 62 10 100 31.5 159/86(130) NSR 0 (11) 10(A) , No pain 12:40:17 62 16 100 37.6 159/82(132) NSR 0 (11) 10(A) , No pain 12:44:43 59 17 100 36 144/81(129) NSR 0 (11) 10(A) , No pain 12:49:01 59 14 99 41.4 138/77(115) NSR 0 (11) 10(A) , No pain 12:53:19 59 16 99 36 138/79(113) NSR 0 (11) 10(A) , No pain 12:57:38 58 13 98 45.1 133/75(106) NSR 0 (11) 10(A) , No pain 13:01:58 60 15 98 40.5 149/81(116) NSR 0 (11) 10(A) , No pain 13:06:18 62 13 98 36.8 141/79(115) NSR 0 (11) 10(A) , No pain Medications Time Medication Route Dose Verified Delivered Reason Notes Effec tiveness by by 12:35:27 Lidocaine 1% added 20ml Ramandeep Enrique used for to vial MD BEY procedure field 12:35:41 Heparin Flush added 2 M Rochelle Enrique used for Bag to bags MD BEY procedure (1000units/500ml field NS) 12:43:42 Versed I.V. 1 mg Ramandeep Quintero for MD Raphael MC sedation 12:43:52 Fentanyl I.V. 50 M [place] [facility] [place] RN sedation 12:44:11 cefepime iv 1 gm M J Klaus Martinezody MD Lim RN 12:46:35 Versed I.V. 1 mg M J Long Ingrid for MD Raphael MC sedation 12:46:43 Fentanyl I.V. 50 M J Long Ingrid for steven Lim RN sedation 13:05:28 Versed I.V. 2 mg M J Long Ingrid for MD Raphael MC sedation 13:05:36 Fentanyl I.V. 100 M [place] [place] Lim RN sedation Procedure Log Time Note 11:40:43 Patient Height : 70 inches 11:40:49 Patient Weight : 243 lbs 11:41:38 Time tracking: Regular hours (M-F 7:00 - 5:00) 11:42:07 Plan of Care:Hemodynamics will remain stable., Cardiac rhythm will remain stable., Comfort level will be maintained., Respiratory function will remain adequate., Patient/ family verbilizes understanding of procedure., Procedure tolerated without complication., Recovers from procedure without complications.. 11:42:16 Patient allergic to Codeine 11:42:21 Patient allergic to Morphine 11:42:27 Patient allergic to Penicillins 11:42:44 Patient received from Outpatients to IR Alert and oriented. Tansferred to table in Prone position. 11:42:49 Signed procedure consent form obtained from patient. 11:42:55 H&P Date Dictated: 04/24/2018 Within 30 days and on chart.. 11:42:57 Pre-procedure instructions explained to patient. 11:42:58 Pre-op teaching completed and patient verbalized understanding. 11:43:00 Family in patients room. 11:43:03 Patient NPO since Midnight. 11:43:08 Is the patient allergic to Iodine/contrast media? No. 11:43:11 Patient diabetic? No. 11:43:13 - 11:43:14 ----Pre-sedation anethsthesia assessment.---- 11:43:17 Previous problem with sedation/anesthesia? No ? :43:32 Snore? Yes 11:43:35 Sleep apnea? No 12:00:00 Deviated septum? No 12:00:02 Opens mouth fully? Yes 12:00:05 Sticks out tongue? Yes 12:00:10 Airway obstruction? Yes copd 12:00:46 Dentures? No ? 12::49 - 12:01:07 IV patent on arrival in left forearm with D5/.45%NaCl at KVO. 12:01:15 Right renal area was prepped with chlora-prep and draped in sterile fashion 12:02:07 GLIDE CATHETER 5FR STRAIGHT 65cm (CG505) opened to sterile field. 12:25:28 ECG and BP/O2 sat monitors applied to patient. 12:25:29 Vital chart was started 12:25:30 Baseline sample Acquired. 12:25:33 Full Disclosure recording started 12:25:34 - 12:35:27 Lidocaine 1% 20ml vial added to field was administered by Ramandeep Enrique MD; used for procedure; 12:35:41 Heparin Flush Bag (1000units/500ml NS) 2 bags added to field was administered by Ramandeep Enrique MD; used for procedure; 12:37:57 CHIBA 22 X 15 needle opened to sterile field. 12:38:49 Physician arrived 12:40:07 KIT, INTRODUCER ACCUSTICK II W/C ([id number]) opened to sterile field. 12:40:25 --------ALL STOP TIME OUT------ 12:40:26 Final Timeout: patient, procedure, and site verified with staff and physician. All members of the team are in agreement. 12:40:33 Procedure started. 12:40:41 Local anesthetic to Abdominal area with Lidocaine 1% by Ramandeep Enrique MD.INITIAL ACCESS ONLY 12:43:42 Versed 1 mg I.V. was administered by Ingrid Lim RN; for sedation; 12:43:52 Fentanyl 50 mcg I.V. was administered by Ingrid Lim RN; for sedation ; 12:44:11 cefepime 1 gm iv was administered by Ingrid Lim RN; ; 12:46:35 Versed 1 mg I.V. was administered by Ingrid Lim RN; for sedation; 12:46:43 Fentanyl 50 mcg I.V. was administered by Ingrid Lim RN; for sedation ; 12:57:43 NITINOL .018 80cm wire ([id number]) opened to sterile field. 13:00:05 GLIDE WIRE ANGLE 180cm (HR7538) opened to sterile field. 13:05:28 Versed 2 mg I.V. was administered by Ingrid Lim RN; for sedation; 13:05:36 Fentanyl 100 mcg I.V. was administered by Ingrid Lim RN; for sedation; 13:05:47 Procedure ended.(Physican Out) 13:05:58 Fluoroscopy time 03.60 minutes. 13:06:05 Fluoroscopy dose: 107 mGy 13:06:05 Flurop Dose total: 107 13:06:13 Contrast amount:Isovue 300 35ml. 13:06:17 Procedure and supply charges have been captured, reviewed, submitted an d are correct. 13:07:54 Report given to Outpatients. 13:08:21 Vital chart was stopped Device Usage Item Name Manufacture Quantity Catalog Hospital Part Current Minimal Lot# / Number Charge Number Stock Stock Serial# Code GLIDE Terumo 1 [id number] 5 CATHETER 5FR STRAIGHT 65cm (CG505) CHIBA 22 X mylearnadfriend Medical 1 [id number] [id number] [id number] 5 [id number] 15 needle NITINOL .018 Medtronic 1 [id number] 526453 278320 5 80cm wire (G251371) KIT, [place] 1 [id number] [id number] 205075 218621 5 INTRODUCER Scientific ACCUSTICK II W/C ([id number]) GLIDE WIRE Terumo 1 [id number] 177819 422509 [id number] 5 ANGLE 180cm (ZD5155) Signature Audit [place] Stage Time Signature Unsigned Intra-Procedure 04/24/2018 Nora Valverde 1:08:18 PM RT(R) [facility] [address] [place] [id number]
--- NOTE | ~2018-04-24 | OP ---
PATIENT NAME: TATYANA MUNGUIA MEDICAL RECORD: [id number] :40 LOCATION:[id number] ADMISSION DATE: SURGEON: LIBBY ASHFORD MD DATE OF OPERATION: 04/24/2018 SURGEON: Libby Ashford MD ANESTHESIA: General anesthesia by Leo Mcclelland MD DIAGNOSES: Right pyelonephritis, history of right lower pole renal stone 10 mm. PROCEDURE: Cystoscopy, right nephroscopy. FINDINGS: On cystoscopy, obstructive BPH. Single ureteral orifices. Heavily trabeculated bladder with cellules and diverticula. No bladder tumors seen. On nephroscopy no renal stones seen in any the calices that I could access. BLOOD LOSS: None. CLINICAL HISTORY: This is a 77-year-old man whom I initially saw with a presentation of a 10-mm right renal stone with renal colic. He initially chose to have a right ESWL for this stone. The stone was seen on CT scan. He then had a right ureteral stent insertion and we planned to do lithotripsy on the same day. When we put him on the lithotripsy table, we noticed that the stone was radiolucent and could not be seen at all. Therefore, on the possibility that this could be a uric acid stone, he was started on potassium citrate to try to dissolve the uric acid stone. The subsequent CT scan showed; however, that the stone size is unchanged. Therefore, we decided to try an alternate approach. Also, in the meantime, the patient developed pain, fevers and rigors. The right ureteral stent was removed by pulling on the string attached to it. He was started on oral Levaquin empirically. Urine cultures have been drawn from my office. They are growing Gram-positive organisms, but the actual culture and sensitivity results will take another day or so to come in. He also has a mass on the left kidney, which is 1.8 cm in size. It appears to be exophytic and solid and enhancing with contrast. I will refer him to interventional radiology for biopsy of this mass and cryotherapy to destroy it. He comes today to have a right percutaneous nephrolithotomy to remove the presumably infected renal stone. Earlier this morning, he went to interventional radiology and they tried to access the stone containing tacho. The radiologist did express that he was not able to see the stone and he was not certain if he got into the tacho with the stone. We will proceed with the percutaneous nephrolithotomy. He is allergic to CODEINE, MORPHINE, and PENICILLIN as well as PRAVASTATIN. He was given IV Levaquin. DESCRIPTION OF PROCEDURE: The patient was given induction of general anesthetic while supine on a stretcher. He was then prepped and draped. We performed cystoscopy. My aim on the cystoscopy was to draw the nephroureteral catheter out of the bladder and out through the urethra. This way when we insert the wire from above, the wire will hang out of the urethra at its distal end. We can then clamp with a hemostat to prevent loss of the access tract. While performing cystoscopy, he has no urethral strictures. He has trilobar hyperplasia of the prostate with an especially prominent bladder neck. Going into the bladder, we noted quite severe cellules and diverticula and a very heavily trabeculated bladder. No bladder tumors were seen. The right ureteral catheter was seen. Grasping forceps were placed on it and I tried to pull it as OPERATIVE REPORT [id number] TATYANA MUNGUIA distally as possible. However, it ended up in the bulbar urethra. It is not long enough to hang out of the penile meatus. We then inserted a 16-Bhutanese Ortega catheter and put this to drainage for the duration of the case. The patient was then turned over into the prone position on the Rony frame. He was then prepped and draped. The nephroureteral catheter that was placed by interventional radiology was accessed. I placed an Amplatz Super Stiff wire down it. It then exited the penile urethra. The circulating nurse then applied a hemostat to the wire to prevent its backward migration. The nephroureteral catheter was removed entirely. A small incision was made on either side of the Super Stiff wire. A dual-lumen catheter was then inserted over the wire into the proximal ureter. A Sensor wire was then put down through the second lumen down to the bladder level. Once the wires were in place, the dual lumen catheter was removed entirely. We then introduced the NephroMax tract dilation balloon. Once the balloon was in position, the tract was dilated with 20 atmospheres of pressure. With the balloon dilator, we slid the access sheath over the balloon and into position. The balloon was then completely deflated and the balloon catheter was removed entirely. The nephroscope was then introduced. The sheath was at the UP junction. Blood clots from his earlier tract insertion were removed using the Yemeni LithoClast ultrasonic modality. Looking in the kidney, a very tiny mahnaz of kidney stone was seen and this was irrigated out. I then noticed the infundibulum leading to the upper pole, and going up into the upper pole compound a tacho was seen. No stones were seen here. Going farther back to the lateral aspect of the kidney, the lower pole infundibulum was seen. Again, we went down this infundibulum. He has a compound tacho in the lower pole and again no stone was seen. Finally, at the lateral mid pole margin, we found the infundibulum going down to the anterior lateral tacho. This was in the mid pole. We went down this infundibulum and again no stones were seen in the tacho. At this point, I had a discussion with interventional radiology. He felt that if the stone was present it would be in the anterior mid pole tacho and somewhat inferior. I had been looking at this area and I could not see any stone. My only assumption is that I cannot see the stones with the current access that I have or the stone may actually have dissolved with the potassium citrate treatment and we were seeing an artifact on the CT scan. At this point, having looked multiple times in all of these calices and seeing no stones, I decided to abandon further attempts to keep looking for the stone. The scope was removed. A 24-Bhutanese Malecot nephrostomy tube was placed down into the kidney. Once the nephrostomy tube was in position, the working sheath was removed entirely. The safety wire was removed entirely. The Super Stiff wire, which had the hemostat on it was removed entirely by pulling it distally out through the penile meatus. The drain was sutured to the skin using 2-0 nylon. It was put to bag drainage. Dressings were applied around the nephrostomy tube site. The Ortega catheter was removed. The patient will be placed in 23-hour observation for pain control. TRANSINT:[id number] Voice Confirmation ID: [id number] DOCUMENT ID: [id number] OPERATIVE REPORT [id number] TATYANA MUNGUIA, LIBBY Moreau MD at 0935 CC: [id number] DICTATION DATE: 04/24/18 1613 MEDIA TRAFFIC MANAGER: 04/24/18 1640 REG [facility] [address] [place] [address]
[~2018-04-24 09:00] MED LIST changes: -BACTRIM DS TABL1 TAB PO; -MACRODANTIN100 MG PO; -PROSCAR5 MG PO; -TORADOL10 MG PO
[2018-04-24 09:42] VITALS: BP 137/66; BMI 35.0
[2018-04-24 09:47] VITALS: BP 137/66; BMI 35.0
[2018-04-24 11:58] LABS: BASOPHILS 0.1 % (0-2); EOSINOPHILS 0.9 % (0-7); HEMATOCRIT 41.9 % (42.0-54.0); HEMOGLOBIN 14.3 g/dL (13.5-17.5); IMMATURE GRANULOCYTES 0.2 % (0-5); MCH 30.8 pg (26.0-34.0); MCHC 34.1 g/dL (31.0-37.0); MCV 90.3 fL (80.0-100.0); MEAN PLATELET VOLUME 9.5 fL (7.4-10.4); MONOCYTES 8.1 % (2-11); NEUTROPHILS 75.7 % (40-80); PLATELET COUNT 204 10x3/uL (130-400); RBC 4.64 10x6/uL (4.20-6.10); RDW 12.9 % (11.5-14.5); WBC 9.4 10x3/uL (4.8-10.8)
[2018-04-24 12:09] LABS: ANION GAP 9.7 mmol/L (8-16); CALCIUM 9.1 mg/dL (8.5-10.1); CARBON DIOXIDE 31.2 mmol/L (21.0-32.0); CREATININE - SERUM 1.1 mg/dL (0.6-1.3)
[2018-04-24 12:11] LABS: POTASSIUM - SERUM 3.9 mmol/L (3.5-5.1)
[2018-04-24 12:29] LABS: APTT 27.7 SECONDS (22.8-39.4); INR 1.08 (0.85-1.17); PROTIME 13.6 SECONDS (11.6-15.0)
[2018-04-24 17:27] VITALS: BP 145/64
[2018-04-24 17:29] VITALS: BP 145/64; Ht 177.8 cm; Wt 110.5 kg
[2018-04-24 20:00] VITALS: BP 145/69
[2018-04-25] VITALS: BP 145/65
[2018-04-25 04:00] VITALS: BP 135/52
[2018-04-25 09:10] VITALS: BP 134/60
[2018-04-25 12:22] VITALS: BP 125/75
[2018-04-25 20:21] VITALS: BP 132/65
[2018-04-26] VITALS (12 sets, daily range): BP systolic 104–143; BP diastolic 43–558
[2018-04-26 09:32] LABS: BASOPHILS 0.2 % (0-2); EOSINOPHILS 2.1 % (0-7); HEMATOCRIT 38.4 % (42.0-54.0); HEMOGLOBIN 13.3 g/dL (13.5-17.5); IMMATURE GRANULOCYTES 0.3 % (0-5); MCH 30.9 pg (26.0-34.0); MCHC 34.6 g/dL (31.0-37.0); MCV 89.1 fL (80.0-100.0); MEAN PLATELET VOLUME 9.5 fL (7.4-10.4); NEUTROPHILS 76.4 % (40-80); PLATELET COUNT 169 10x3/uL (130-400); RBC 4.31 10x6/uL (4.20-6.10); RDW 12.6 % (11.5-14.5); WBC 11.6 10x3/uL (4.8-10.8)
[2018-04-26 09:40] LABS: APTT 31.3 SECONDS (22.8-39.4); INR 1.16 (0.85-1.17); PROTIME 14.4 SECONDS (11.6-15.0)
[2018-04-26 09:42] LABS: CALCIUM 8.6 mg/dL (8.5-10.1); CARBON DIOXIDE 27.7 mmol/L (21.0-32.0); CREATININE - SERUM 1.1 mg/dL (0.6-1.3); POTASSIUM - SERUM 3.7 mmol/L (3.5-5.1)
[2018-04-27 03:50] VITALS: BP 127/60
[2018-04-27 07:07] VITALS: BP 122/60
[2018-04-27 12:28] VITALS: BP 124/61
[2018-04-27 20:08] VITALS: BP 140/61
[2018-04-27 23:54] VITALS: BP 158/64
[2018-04-28 03:53] VITALS: BP 143/67
[2018-04-28 08:06] VITALS: BP 124/57
[2018-04-28 11:46] VITALS: BP 139/80
[2018-04-28 16:32] VITALS: BP 133/60
[2018-04-28 20:01] VITALS: BP 145/63
[2018-04-29 03:45] VITALS: BP 135/60
[2018-04-29 08:35] VITALS: BP 141/64
[2018-04-29 13:59] VITALS: BP 158/75
[2018-04-29 16:44] VITALS: BP 108/69
[2018-04-29 20:15] VITALS: BP 165/67
[2018-04-30 05:20] VITALS: BP 141/63
[2018-04-30 09:05] VITALS: BP 142/86
[2018-04-30 11:57] VITALS: BP 136/57
[2018-04-30 16:53] VITALS: BP 138/77
[2018-04-30 20:00] VITALS: BP 137/75
[2018-05-01 05:01] VITALS: BP 139/79
[2018-05-01 10:43] VITALS: BP 102/55
[2018-05-01 15:49] VITALS: BP 114/60
[2018-05-01 19:55] VITALS: BP 133/50
[2018-05-01 23:54] VITALS: BP 128/50
[2018-05-02 04:00] VITALS: BP 143/60
[2018-05-02 08:11] VITALS: BP 126/84
[2018-05-02 11:43] VITALS: BP 128/69
[2018-05-02 20:00] VITALS: BP 121/55
[2018-05-03] VITALS: BP 114/60
[2018-05-03 04:00] VITALS: BP 117/54
[2018-05-03 09:49] VITALS: BP 148/63
[2018-05-03] MEDS ORDERED: BACTRIM DS TABL1 TAB PO (13:43)
[2018-05-09 10:20] LABS: CALCULI - CA OXALATE MONOHYDR 85 % (()); CALCULI - CALCIUM PHOSPHATE 10 % (()); CALCULI - COLOR Brown (()); CALCULI - COMMENT Note: (()); CALCULI - WEIGHT 12.8 mg (())
== END 2018-05-03 14:42 | disposition home or self-care (01) | DRG 660 ==
LOC: D.OPS 09:00 → D.MS 09:00 → D.OPS 11:00 → D.PAN 11:00 → D.MS 17:02 → D.OPS 04-26 15:24 → D.MS 04-26 15:25
PROVIDERS: Anesthesiology; General Practice; Radiology Vascular & Interventional Radiology; Urology
PROC: 0T9330Z Drainage of Right Kidney Pelvis with Drainage Device, Percutaneous Approach (ICD-10-PCS; 2018-04-24)
PROC: 0TJ54ZZ Inspection of Kidney, Percutaneous Endoscopic Approach (ICD-10-PCS; principal; 2018-04-24 11:00)
PROC: 0T9330Z Drainage of Right Kidney Pelvis with Drainage Device, Percutaneous Approach (ICD-10-PCS; 2018-04-26)
PROC: 0TC33ZZ Extirpation of Matter from Right Kidney Pelvis, Percutaneous Approach (ICD-10-PCS; 2018-05-01)
PROC: 0TP5X0Z Removal of Drainage Device from Kidney, External Approach (ICD-10-PCS; 2018-05-03)
DX: N20.0 Calculus of kidney (principal); N13.8 Other obstructive and reflux uropathy; N40.1 Benign prostatic hyperplasia with lower urinary tract symptoms; B95.7 Other staphylococcus as the cause of diseases classified elsewhere; Z16.23 Resistance to quinolones and fluoroquinolones

== ENCOUNTER → 2018-05-21 16:33 | Outpatient (CLI) | payer MEDICARE ==
[2018-04-24 17:29] VITALS: BMI 34.9
[~2018-05-21 16:33] MED LIST changes: +BACTRIM DS TABL1 TAB PO; +MACRODANTIN100 MG PO; +PROSCAR5 MG PO; +TORADOL10 MG PO
== END | disposition home or self-care (01) ==
LOC: D.LABREF 16:33
DX: N39.0 Urinary tract infection, site not specified (principal)

== ENCOUNTER → 2018-06-14 08:57 | Outpatient (CLI) | payer MEDICARE ==
[2018-04-24 17:29] VITALS: BMI 34.9
[2018-06-14 10:40] LABS: ALBUMIN 3.5 g/dL (3.4-5.0); BILIRUBIN - DIRECT 0.07 mg/dL (0.00-0.30); BILIRUBIN - INDIRECT 0.29 mg/dL (0.00-1.00); BILIRUBIN - TOTAL 0.36 mg/dL (0.2-1.3); PROTEIN - SERUM 6.5 g/dL (6.4-8.2)
== END | disposition home or self-care (01) ==
LOC: D.US 08:57
PROVIDERS: Internal Medicine Gastroenterology
DX: K76.0 Fatty (change of) liver, not elsewhere classified (principal)

== ENCOUNTER → 2018-06-28 12:14 | Outpatient (CLI) | payer MEDICARE ==
[2018-04-24 17:29] VITALS: BMI 34.9
== END | disposition home or self-care (01) ==
LOC: D.CT 12:14
DX: N20.0 Calculus of kidney (principal)

== ENCOUNTER → 2018-07-01 21:20 | Outpatient (CLI) | payer MEDICARE ==
[2018-04-24 17:29] VITALS: BMI 34.9
== END | disposition home or self-care (01) ==
LOC: D.LABREF 21:20
DX: D72.829 Elevated white blood cell count, unspecified (principal); R31.9 Hematuria, unspecified

== ENCOUNTER 2018-07-03 16:28 | Emergency (ER) | payer MEDICARE ==
[~2018-07-03] VITALS: Ht 177.8 cm; Wt 104.5 kg
[~2018-07-03 16:28] MED LIST changes: -MACRODANTIN100 MG PO; -PROSCAR5 MG PO; -TORADOL10 MG PO
[2018-07-03 16:33] VITALS: Ht 177.8 cm; Wt 104.5 kg
[2018-07-03] MEDS ORDERED: MACRODANTIN100 MG PO (16:35)
[2018-07-03] MEDS ORDERED: FLOMAX0.4 MG PO (16:36)
[2018-07-03] MEDS ORDERED: PROSCAR5 MG PO (16:36)
[2018-07-03] MEDS ORDERED: ZANAFLEX4 MG PO (16:37)
[2018-07-03 17:12] LABS: BASOPHILS 0.3 % (0-2); EOSINOPHILS 2.8 % (0-7); HEMOGLOBIN 13.3 g/dL (13.5-17.5); IMMATURE GRANULOCYTES 0.1 % (0-5); LYMPHOCYTES 21.1 % (15-50); MCH 30.1 pg (26.0-34.0); MCHC 34.1 g/dL (31.0-37.0); MCV 88.2 fL (80.0-100.0); MEAN PLATELET VOLUME 9.7 fL (7.4-10.4); NEUTROPHILS 68.7 % (40-80); PLATELET COUNT 175 10x3/uL (130-400); RBC 4.42 10x6/uL (4.20-6.10); RDW 12.9 % (11.5-14.5); WBC 7.2 10x3/uL (4.8-10.8)
[2018-07-03 17:41] LABS: APPEARANCE CLEAR (CLEAR); BILIRUBIN NEGATIVE (NEGATIVE); COLOR YELLOW (YELLOW); GLUCOSE NEGATIVE (NEGATIVE); KETONE NEGATIVE (NEGATIVE); NITRITE NEGATIVE (NEGATIVE); PROTEIN NEGATIVE (NEGATIVE); UROBILINOGEN NORMAL (NORMAL)
[2018-07-03 17:42] LABS: BACTERIA FEW /hpf (NONE SEEN); RED CELLS - URINE 0-5 /hpf (0-5)
[2018-07-03 18:05] LABS: ALBUMIN 3.5 g/dL (3.4-5.0); ALKALINE PHOSPHATASE 85 U/L (46-116); ALT (SGPT) 32 U/L (10-68); BILIRUBIN - TOTAL 0.34 mg/dL (0.2-1.3); CALC OSMOLALITY 280 mosm/kg (275-300); CALCIUM 8.8 mg/dL (8.5-10.1); CARBON DIOXIDE 26.7 mmol/L (21.0-32.0); CHLORIDE - SERUM 102 mmol/L (98-107); GLUCOSE 128 mg/dL (74-106); POTASSIUM - SERUM 4.1 mmol/L (3.5-5.1); PROTEIN - SERUM 6.5 g/dL (6.4-8.2); SODIUM 139 mmol/L (136-145); UREA NITROGEN 15 mg/dL (7-18); eGFR NON AFRICAN AMERICAN 77 mL/min (90-120)
[2018-07-03] MEDS ORDERED: TORADOL10 MG PO (21:50)
[2018-07-03 21:57] VITALS: BP 129/72
== END 2018-07-03 21:57 | disposition home or self-care (01) ==
LOC: D.ER 16:28
PROVIDERS: Emergency Medicine
DX: R10.9 Unspecified abdominal pain (principal); N23 Unspecified renal colic; H91.91 Unspecified hearing loss, right ear; J44.9 Chronic obstructive pulmonary disease, unspecified; I25.10 Atherosclerotic heart disease of native coronary artery without angina pectoris; N42.9 Disorder of prostate, unspecified

== ENCOUNTER 2018-07-09 08:45 | Outpatient (CLI) | payer MEDICARE ==
[2018-07-08 08:49] LABS: HEMATOCRIT 40.1 % (42.0-54.0); HEMOGLOBIN 13.8 g/dL (13.5-17.5); MCH 30.5 pg (26.0-34.0); MCHC 34.4 g/dL (31.0-37.0); MCV 88.5 fL (80.0-100.0); MEAN PLATELET VOLUME 9.1 fL (7.4-10.4); RBC 4.53 10x6/uL (4.20-6.10); RDW 12.9 % (11.5-14.5); WBC 7.7 10x3/uL (4.8-10.8)
[2018-07-08 09:04] LABS: CALC OSMOLALITY 287 mosm/kg (275-300); CALCIUM 9.2 mg/dL (8.5-10.1); CARBON DIOXIDE 27.1 mmol/L (21.0-32.0); CHLORIDE - SERUM 106 mmol/L (98-107); GLUCOSE 141 mg/dL (74-106); POTASSIUM - SERUM 4.4 mmol/L (3.5-5.1); SODIUM 142 mmol/L (136-145); UREA NITROGEN 20 mg/dL (7-18); eGFR NON AFRICAN AMERICAN 77 mL/min (90-120)
[~2018-07-09] VITALS: Ht 177.8 cm; Wt 110.2 kg
[~2018-07-09 08:45] MED LIST changes: +MACRODANTIN100 MG PO; +PROSCAR5 MG PO; +TORADOL10 MG PO
[2018-07-09 09:57] VITALS: BP 143/74; Ht 177.8 cm; Wt 110.2 kg
== END 2018-07-09 11:55 | disposition home or self-care (01) ==
LOC: D.OPS 08:45 → D.PAN 10:00 → EDSTATUS 10:00 → D.OPS 10:15
PROVIDERS: Anesthesiology
DX: N20.0 Calculus of kidney (principal); Z53.29 Procedure and treatment not carried out because of patient's decision for other reasons; Z01.812 Encounter for preprocedural laboratory examination

== ENCOUNTER 2018-07-11 09:06 | Day surgery (SDC) | payer MEDICARE ==
[~2018-07-11] VITALS: Ht 177.8 cm; Wt 110.2 kg
--- NOTE | ~2018-07-11 | OP ---
PATIENT NAME: TATYANA MUNGUIA MEDICAL RECORD: [id number] :40 LOCATION:[facility] ADMISSION DATE: SURGEON: LIBBY ASHFORD MD DATE OF OPERATION: 07/11/2018 SURGEON: Libby Ashford MD ANESTHESIA: General anesthesia by Elliot Graff CRNA PREOPERATIVE DIAGNOSES: A 4-mm right lower pole stone and recurrent urinary tract infections. POSTOPERATIVE DIAGNOSES: Very tiny renal stone seen and removed. Recurrent urinary tract infections from obstructive BPH. PROCEDURES: Cystoscopy, right retrograde pyelogram, right renal stone removal, right ureteral stent insertion. FINDINGS: On fluoroscopy, no radiodense stone was seen. On cystoscopy, obstructive BPH with bilateral lateral lobe hyperplasia. Heavily trabeculated bladder with cellules and diverticula. No bladder tumors were seen. On right ureteroscopy, a tiny stone fragment was seen and this was removed with the basket. BLOOD LOSS: None. CLINICAL HISTORY: This is a 78-year-old male with a previous history of infected renal stones. He had a right PCNL to remove a radiolucent 10 mm renal stone, which was infected. The stone composition was 85% calcium oxalate monohydrate and 5% calcium oxalate dihydrate with 10% calcium phosphate. In spite of this calcium composition, the stone was radiolucent. The patient has now complained of recurrent episodes of urinary tract infections again. He also complains of feeling left flank pain. We had a CT scan, which shows a 4 mm stone in the right lower pole of the kidney. Upon discussing the situation with the patient, he wished to have this right renal stone removed by ureteroscopy. HE HAS ALLERGIES TO CODEINE, MORPHINE, PRAVASTATIN, AND PENICILLIN. He was given Levaquin IV injection molding machine tender to the OR. DESCRIPTION OF PROCEDURE: The patient was given induction of general anesthesia. He was placed in the dorsal lithotomy position and prepped and draped. We performed fluoroscopy to try to find the stone, but we could see no definite radiodense stone. Cystoscopy was performed using a 21-Australian cystoscope with 30-degree lens. The penile urethra shows no strictures. The prostate is obstructive with bilateral lateral lobe hyperplasia and a tall bladder neck. Going in the bladder, further signs of bladder outlet obstruction include heavy trabeculation of the bladder with cellules and diverticula formation. No bladder tumors were seen. He has single ureteral orifices on each side. A right retrograde pyelogram was performed by inserting an open-ended ureteral catheter into the right ureteral orifice and diluted contrast was injected. No hydronephrosis was seen. No filling defects were seen. We then inserted a Sensor wire into the lumen of the ureteral catheter up to the renal pelvis level. We then inserted a second Sensor wire into the ureteral orifice up to the renal pelvis level. Therefore, we had 2 wires in the ureter going up to the kidney. One of the wires was clamped off as a safety wire. We worked over the second wire. The scope was removed. We then used a OPERATIVE REPORT [id number] [id number] E 09/27 x 46 cm ureteral access sheath. This was placed up to the UP junction without any obstruction. The working wire and the trocar of the ureteral access sheath was then removed, leaving the sheath in place. The flexible ureteroscope was then inserted into the sheath into the kidney. Starting from the upper pole tacho, I examined each of the calices in turn. I could not see an obvious stone in any of the calices. I would limit to how far I could deflect the scope, but I think I saw all of his calices. The only semblance of stone that I could see was a very small 1 to 1.5 mm mahnaz in the renal pelvis. We put our basket on it and the basket did trap it, but on the way to pull out the stone fragment, it was lost somewhere in the sheath. Nevertheless, it is probably flushed out with irrigation. At this point, there was no reason to continue further to look for a stone. I am pretty certain that his recurrent urinary tract infections are due to his BPH and not due to an infected renal stone. We backloaded the safety wire into the cystoscope and over that wire, we inserted a 6-Australian x 24 cm ureteral stent. Once the stent was in position, the wire was removed entirely to allow the stent to coil. The distal end of the stent was pushed into the bladder. The string on the distal end of the stent was maintained. The patient was awakened and brought to the recovery room. I will see him next week to remove the ureteral stent by pulling on the string. TRANSINT:[id number] Voice Confirmation ID: [id number] DOCUMENT ID: [id number] LIBBY ASHFORD MD at 1953 CC: [id number] DICTATION DATE: 07/11/18 172 PHYSICIAN OFFICE REP: 07/11/18 1747 REG [facility] [address] [id number]
[2018-07-11 13:37] VITALS: BP 146/71; Ht 177.8 cm; Wt 110.2 kg
== END 2018-07-11 20:00 | disposition home or self-care (01) ==
LOC: D.OPS 09:06
DX: N20.0 Calculus of kidney (principal); N32.3 Diverticulum of bladder; N32.89 Other specified disorders of bladder; Z87.440 Personal history of urinary (tract) infections; N40.1 Benign prostatic hyperplasia with lower urinary tract symptoms; N13.8 Other obstructive and reflux uropathy; Z88.5 Allergy status to narcotic agent; Z88.0 Allergy status to penicillin; Z01.812 Encounter for preprocedural laboratory examination

== ENCOUNTER → 2018-07-22 18:21 | Outpatient (CLI) | payer MEDICARE ==
[2018-07-11 13:37] VITALS: BMI 34.9
== END | disposition home or self-care (01) ==
LOC: D.LABREF 18:21
DX: N39.0 Urinary tract infection, site not specified (principal)

== ENCOUNTER → 2018-11-22 10:03 | Outpatient (CLI) | payer MEDICARE ==
[2018-07-11 13:37] VITALS: BMI 34.9
[~2018-11-22 10:03] MED LIST changes: +ATIVAN1 MG PO; +KLOR-CON 1010 MEQ PO; +NEURONTIN600 MG PO; +RANITIDINE HCL150 M1 PO; -ZANTAC150 MG PO
[2018-11-22 10:52] LABS: ALBUMIN 3.4 g/dL (3.4-5.0); BILIRUBIN - DIRECT 0.09 mg/dL (0.00-0.30); BILIRUBIN - INDIRECT 0.25 mg/dL (0.00-1.00); BILIRUBIN - TOTAL 0.34 mg/dL (0.2-1.3); PROTEIN - SERUM 6.8 g/dL (6.4-8.2)
== END | disposition home or self-care (01) ==
LOC: D.LAB 10:03
PROVIDERS: Urology
DX: N40.0 Benign prostatic hyperplasia without lower urinary tract symptoms (principal); Z12.5 Encounter for screening for malignant neoplasm of prostate

== ENCOUNTER → 2018-11-26 08:56 | Outpatient (CLI) | payer MEDICARE ==
[2018-07-11 13:37] VITALS: BMI 34.9
[2018-11-26 10:14] LABS: ALBUMIN 3.4 g/dL (3.4-5.0); BILIRUBIN - DIRECT 0.13 mg/dL (0.00-0.30); BILIRUBIN - INDIRECT 0.33 mg/dL (0.00-1.00); BILIRUBIN - TOTAL 0.46 mg/dL (0.2-1.3); PROTEIN - SERUM 6.7 g/dL (6.4-8.2)
== END | disposition home or self-care (01) ==
LOC: D.US 11-22 08:30 → D.LAB 11-22 09:00 → D.US 08:56
PROVIDERS: Internal Medicine Gastroenterology
DX: K76.0 Fatty (change of) liver, not elsewhere classified (principal)

== ENCOUNTER → 2018-11-29 14:24 | Outpatient (CLI) | payer MEDICARE ==
[2018-07-11 13:37] VITALS: BMI 34.9
== END | disposition home or self-care (01) ==
LOC: D.CT 14:24
DX: Z87.442 Personal history of urinary calculi (principal)

== ENCOUNTER 2018-12-10 07:51 | Day surgery (SDC) | payer MEDICARE ==
[~2018-12-10] VITALS: Ht 177.8 cm; Wt 113.4 kg
[2018-12-10 08:29] LABS: HEMATOCRIT 42.6 % (42.0-54.0); HEMOGLOBIN 14.8 g/dL (13.5-17.5); MCH 31.1 pg (26.0-34.0); MCHC 34.7 g/dL (31.0-37.0); MCV 89.5 fL (80.0-100.0); MEAN PLATELET VOLUME 9.2 fL (7.4-10.4); RBC 4.76 10x6/uL (4.20-6.10); RDW 12.9 % (11.5-14.5); WBC 6.6 10x3/uL (4.8-10.8)
[2018-12-10 08:41] LABS: CALC OSMOLALITY 284 mosm/kg (275-300); CALCIUM 9.1 mg/dL (8.5-10.1); CARBON DIOXIDE 28.5 mmol/L (21.0-32.0); CHLORIDE - SERUM 102 mmol/L (98-107); GLUCOSE 131 mg/dL (74-106); POTASSIUM - SERUM 3.9 mmol/L (3.5-5.1); SODIUM 142 mmol/L (136-145); UREA NITROGEN 13 mg/dL (7-18); eGFR NON AFRICAN AMERICAN 77 mL/min (90-120)
[2018-12-10 09:02] VITALS: BP 104/67; Ht 177.8 cm; Wt 113.4 kg
--- NOTE | 2018-12-10 16:15 | OP ---
PATIENT NAME: TATYANA MUNGUIA MEDICAL RECORD: [id number] :40 LOCATION:.[facility] ADMISSION DATE: SURGEON: TAL ASHFORD MD DATE OF OPERATION: 12/10/2018 SURGEON: Tal Ashford MD ANESTHESIA: TIVA by Elliot Graff CRNA DIAGNOSIS: Obstructive benign prostatic hypertrophy. A 50 mL prostate on digital rectal examination. IPSS is 27 and quality of life score is 4. PSA was 1.52 in 12/22/2013. FINDINGS: Bilateral lateral lobe hyperplasia of the prostate. Small median lobe. Single ureteral orifices bilaterally. No bladder tumors were seen. Heavily trabeculated bladder with cellules and diverticula and small bladder stones noted. PROCEDURE: UroLift times 5 implant deployed and 4 were held in position. SPECIMENS: None. ESTIMATED BLOOD LOSS: Minimal. CLINICAL HISTORY: This is a 78-year-old male who has a long history of voiding dysfunction. I initially saw him last year to treat a renal stone. He had a right PCNL to get out infected calcium oxalate stones. At the time of cystoscopy for the stone surgery, he was noted to have bilateral lateral lobe hyperplasia of the prostate as well as a heavily trabeculated bladder with cellules and diverticula and no bladder tumors. He has trouble with nocturia, daytime urinary frequency and a sense of incomplete bladder emptying. He wishes to have the UroLift procedure done. HE IS ALLERGIC TO PENICILLIN, PRAVASTATIN, CODEINE AND MORPHINE. He was given Levaquin IV front desk monitor to the OR. DESCRIPTION OF PROCEDURE: The patient was given IV sedation. He was then placed into dorsal lithotomy position and prepped and draped. We inserted the UroLift scope. Penile urethra was normal without any strictures. Prostatic urethra was obstructed by very large lateral lobes, which meet in the midline. There is a slight median lobe also present. However, the median lobe was not obstructive. Going into the bladder, heavily trabeculated bladder was seen with no bladder tumors. I started the UroLift implants in the anterior lateral lobe at the level of the verumontanum. On the left side, the implant went in without any difficulty. On the right side, when I attempted to place the implant, a flap of prostatic urethral mucosa dropped in and prevented visualization of the suture. Therefore, I had to guess at the point of suture release. This turned out to be rather too loose. Going back into the bladder with the scope, the next 2 units were placed at the bladder neck level. We moved distally about 1.5 cm from the bladder neck and implanted the devices one on each side of the anterior lateral lobes. Going back to the right verumontanum level, I could see that the clip had fallen off and had actually migrated into the bladder. I therefore fired a fifth unit into the right verumontanum level. At this time, the clip held firmly and there was a good anterior urethral channel. We switched to the 21-Maltese cystoscope. Using grasping forceps, the clip that had gone into the bladder was removed entirely. The bladder was emptied through the OPERATIVE REPORT [id number] TATYANA MUNGUIA cystoscope sheath and then the patient was awakened and brought back to the preoperative holding area. If he cannot void today, he will go home with a Ortega catheter. Otherwise, I will see him in followup in 2 weeks' time. TRANSINT:[id number] Voice Confirmation ID: [id number] DOCUMENT ID: [id number] TAL ASHFORD MD at 1615 CC: [id number] DICTATION DATE: 12/10/18 1304 HOSPICE OFFICE COORDINATOR: 12/10/18 1533 REG [facility] [address] [id number]
--- NOTE | 2018-12-10 17:36 | NUR ---
1500 IV DC'ED WITH CATH INTACT & 100 ML LTC. PT DRESSING. Larry JACKSON R.N. 1510 DRESSED. AWAKE & ALERT. GIVEN DISCHARGE INSTRUCTIONS. PT VOICED UNDERSTANDING. TO PRIVATE CAR PER WHEELCHAIR BY VOLUNTEER. HOME WITH DAUGHTER. Larry JACKSON R.N.
== END 2018-12-10 15:10 | disposition home or self-care (01) ==
LOC: D.OPS 07:51 → D.PAN 09:00 → D.OPS 10:30
PROVIDERS: Anesthesiology; ATTEND Urology
DX: N40.1 Benign prostatic hyperplasia with lower urinary tract symptoms (principal); N13.8 Other obstructive and reflux uropathy; R35.0 Frequency of micturition; R39.14 Feeling of incomplete bladder emptying; R35.1 Nocturia; N32.89 Other specified disorders of bladder; N21.0 Calculus in bladder; N32.3 Diverticulum of bladder; Z88.5 Allergy status to narcotic agent; Z88.0 Allergy status to penicillin; Z88.8 Allergy status to other drugs, medicaments and biological substances; Z01.812 Encounter for preprocedural laboratory examination

== ENCOUNTER 2019-01-03 14:42 | Inpatient (IN) | payer MEDICARE ==
[~2019-01-03] VITALS: Ht 177.8 cm; Wt 109.1 kg
[2019-01-03 16:40] LABS: BASOPHILS 0.2 % (0-2); EOSINOPHILS 5.6 % (0-7); HEMATOCRIT 39.3 % (42.0-54.0); HEMOGLOBIN 13.4 g/dL (13.5-17.5); IMMATURE GRANULOCYTES 0.3 % (0-5); LYMPHOCYTES 13.6 % (15-50); MCH 30.5 pg (26.0-34.0); MCHC 34.1 g/dL (31.0-37.0); MCV 89.5 fL (80.0-100.0); MEAN PLATELET VOLUME 9.4 fL (7.4-10.4); MONOCYTES 7.3 % (2-11); PLATELET COUNT 153 10x3/uL (130-400); RBC 4.39 10x6/uL (4.20-6.10); RDW 12.7 % (11.5-14.5); WBC 9.7 10x3/uL (4.8-10.8)
[2019-01-03 16:47] LABS: INR 1.06 (0.85-1.17); PROTIME 13.3 SECONDS (11.6-15.0)
[2019-01-03 17:05] LABS: ALBUMIN 3.2 g/dL (3.4-5.0); ANION GAP 9.7 mmol/L (8-16); BILIRUBIN - TOTAL 1.03 mg/dL (0.2-1.3); CALCIUM 8.6 mg/dL (8.5-10.1); CARBON DIOXIDE 33.6 mmol/L (21.0-32.0); CREATININE - SERUM 1.1 mg/dL (0.6-1.3); POTASSIUM - SERUM 4.3 mmol/L (3.5-5.1); PROTEIN - SERUM 6.7 g/dL (6.4-8.2)
--- NOTE | 2019-01-03 20:15 | NUR ---
pt to floor at this time.
[2019-01-03] MEDS ORDERED: OMEPRAZOLE40 MG PO (20:31)
[2019-01-04] VITALS (7 sets, daily range): BP systolic 108–138; BP diastolic 59–87; Ht 177.8 cm; Wt 109.1 kg
--- NOTE | 2019-01-04 00:15 | NUR ---
RN NOTE: ADMISSION ASSESSMENT COMPLETE. PT SITING UP IN CHAIR AT THIS TIME. OXY PRN CONTROLLING PAIN. WILL MONITOR FOR NEEDS. CHAIR AND BED ALARMS IN USE.
--- NOTE | 2019-01-04 04:19 | NUR ---
I have reviewed this patient and I concur with the Shift Assessment completed by the Licensed Practical Nurse today this shift.
--- NOTE | 2019-01-04 09:03 | NUR ---
PT ALERT X 4. BREATH SOUNDS CLEAR BILAT. ABDOMEN DISTENDED AND FIRM, THIS IS NORMAL FOR PT. PT REPORTING PAIN OF 8/10, MEDICATED PER ORDERS, PRODUCTION MACHINE TENDER IN PLACE, WILL MONITOR. BED LOW, CALL LIGHT IN REACH, NO OTHER NEEDS AT THIS TIME.
[2019-01-05 00:48] VITALS: BP 117/56
[2019-01-05 04:50] VITALS: BP 132/60
--- NOTE | 2019-01-05 05:05 | NUR ---
I have reviewed this patient and I concur with the Shift Assessment completed by the Licensed Practical Nurse today this shift.
--- NOTE | 2019-01-05 07:57 | NUR ---
PT ALERT X 4. BREATH SOUNDS CLEAR BILAT, 2L O2 PER NC. IV TO LEFT AC, PATENT, DRESSING CLEAN DRY AND INTACT. PT REPORTING PAIN OF 6/10, BIOMECHANICAL ENGINEER IN PLACE, WILL MONITOR. PT SITTING UP IN CHAIR. BED LOW, CALL LIGHT IN REACH. NO OTHER NEEDS AT THIS TIME.
[2019-01-05 09:45] VITALS: BP 115/67
[2019-01-05 13:24] VITALS: BP 121/57
[2019-01-05 18:08] VITALS: BP 127/58
--- NOTE | 2019-01-05 19:43 | NUR ---
RESPONDED TO PATIENT'S CALL LIGHT. IV PUMP ALARMING. FLUSHED PATIENT'S IV. IV IS PATENT. PATIENT DENIES OTHER NEEDS AT THIS TIME. BED IN LOWEST POSITION AND CALL LIGHT WITHIN REACH. ENCOURAGED THE PATIENT TO CALL IF HE HAS NEEDS. WILL CONTINUE TO MONITOR.
[2019-01-06] VITALS: BP 142/70
[2019-01-06 03:00] VITALS: BP 156/68
--- NOTE | 2019-01-06 07:30 | NUR ---
PT SITTING UP IN CHAIR. PT ALERT AND ORIENTED. UP WITH STANDBY ASSIST. PT ON 2L O2, NC. ADMITTED WITH L2 COMPRESSION FX. USES URINAL. IV TO LEFT AC, NS INFUSING @ 30ML/HR. DILAUDID TELETYPE INSTALLER 0.2-10-4. SITE PATENT WITHOUT REDNESS OR SWELLING. TELETYPE INSTALLER CONTROLLING PAIN. NO S/S OF ACUTE DISTRESS NOTED. PT DENIES ANYTHING FURTHER AT THIS TIME. CALL LIGHT IN REACH. WILL CONTINUE TO MONITOR.
[2019-01-06 08:00] VITALS: BP 106/58
--- NOTE | 2019-01-06 10:47 | NUR ---
I have reviewed this patient and I concur with the Shift Assessment completed by the Licensed Practical Nurse today this shift.
[2019-01-06 12:00] VITALS: BP 116/68
[2019-01-06 17:00] VITALS: BP 119/60
--- NOTE | 2019-01-06 17:51 | NUR ---
PT SITTING UP IN CHAIR. PT C/O PAIN TO LOWER BACK /10, GAVE OXYCODONE. PT REQUESTED TO HAVE ORAL PAIN MEDS INSTEAD OF DILAUDID STUDENT SUCCESS COUNSELOR, PT STATED HE WANTS TO BE ABLE TO GO HOME. OXYCODONE MANAGING PAIN AT THIS TIME. PT DENIES ANYTHING FURHTER AT THIS TIME. CALL LIGHT IN REACH. ZOE ALARM ON AND WORKING. WILL CONTINUE TO MONITOR.
[2019-01-06 21:16] VITALS: BP 135/76
--- NOTE | 2019-01-07 00:54 | NUR ---
2000)REC'D.SITTING UP BEDSIDE CHAIR.ON ENTERING ROOM STATES ITS ABOUT TIME YOU GET HERE I'VE BEEN ASKING FOR PAIN MEDS FOR TWO HOURS.LUMBAR DRSG INTACT.WILL CONTINUE TO MONITOR FOR ANY CHGES. AND FOLLOW CURRENT PLAN OF CARE.
--- NOTE | 2019-01-07 04:00 | NUR ---
I have reviewed this patient and I concur with the Shift Assessment completed by the Licensed Practical Nurse today this shift.
[2019-01-07 05:12] VITALS: BP 148/72
[2019-01-07 05:52] LABS: BASOPHILS 0.4 % (0-2); EOSINOPHILS 4.4 % (0-7); HEMATOCRIT 38.6 % (42.0-54.0); HEMOGLOBIN 13.1 g/dL (13.5-17.5); IMMATURE GRANULOCYTES 0.2 % (0-5); LYMPHOCYTES 23.7 % (15-50); MCH 30.5 pg (26.0-34.0); MCHC 33.9 g/dL (31.0-37.0); MCV 89.8 fL (80.0-100.0); MEAN PLATELET VOLUME 9.4 fL (7.4-10.4); MONOCYTES 7.8 % (2-11); NEUTROPHILS 63.5 % (40-80); RDW 12.3 % (11.5-14.5); WBC 5.3 10x3/uL (4.8-10.8)
[2019-01-07 06:25] LABS: CALC OSMOLALITY 280 mosm/kg (275-300); CALCIUM 8.4 mg/dL (8.5-10.1); CARBON DIOXIDE 29.3 mmol/L (21.0-32.0); CHLORIDE - SERUM 103 mmol/L (98-107); CREATININE - SERUM 0.8 mg/dL (0.6-1.3); GLUCOSE 111 mg/dL (74-106); POTASSIUM - SERUM 3.8 mmol/L (3.5-5.1); SODIUM 140 mmol/L (136-145); UREA NITROGEN 15 mg/dL (7-18); eGFR NON AFRICAN AMERICAN > 90 mL/min (90-120)
[2019-01-07 06:33] LABS: PLATELET COUNT 190 10x3/uL (130-400)
--- NOTE | 2019-01-07 08:09 | NUR ---
PT ALERT X 4. BREATH SOUNDS CLEAR, 2L O2 PER NC. IV TO LEFT AC, SALINE LOCKED. PT REPORTING PAIN OF 4/10, WILL MONITOR. PT SITTING IN CHAIR. BED LOW, CALL LIGHT IN REACH. NO OTHER NEEDS AT THIS TIME.
[2019-01-07 09:38] VITALS: BP 157/69
--- NOTE | 2019-01-07 10:58 | MORECARE ---
CASE MANAGEMENT DISCHARGE SUMMARY PATIENT: TATYANA MUNGUIA UNIT: [id number] ADM DATE: 01/04/19 AGE: 78 : 40 SEX: M ROOM/BED: D.2204 AUTHOR: AMANDA TALAVERA PHYSICIAN: REFERRING PHYSICIAN: JAMIE BAPTISTE MD DATE OF SERVICE: 01/07/19 Discharge Plan Patient Name: TATYANA MUNGUIA Facility: [facility]:[place] : 1940 Planned Disposition: Home or Self Care Anticipated Discharge Date: Discharge Date: Expected LOS: Initial Reviewer: [email or web address] Initial Review Date: 01/03/2019 Generated: 01/07/19 11:58 am Comments DCP- Discharge Planning Updated by [email or web address]: Merlyn Hastings on 01/07/19 9:[address] Patient Name: TATYANA MUNGUIA Admission Status: ER Accout number: [id number] Admission Date: 01-04-2019 : 1940 Admission Diagnosis: Attending: JAMIE BAPTISTE Current LOS: 3 Anticipated DC Date: Planned Disposition: Home or Self Care Primary Insurance: MEDICARE A & B Discharge Planning Comments: CM met with patient to complete initial dc planning assessment. CM educated patient on the CM role and verbal consent given by patient to complete assessment. Patient lives at home with his adult daughter and grandchildren. At discharge patient plans to return home and feels this is a safe discharge. CM discussed availability of home health, rehab services, and medical equipment. Patient denied known discharge needs at this time. He just started using a cane. He states his home is safe and his daughter will be his refuse driver home. IMM served and explained. CM will continue to follow and will assist as needed with dc plans/needs. Cut Out Worker: Merlyn Hastings DCPIA - Discharge Planning Initial Assessment Updated by [email or web address]: Merlyn Hastings on 01/07/19 10:56 am * Is the patient Alert and Oriented? Yes * How many steps to enter\exit or inside your home? * PCP DR MCCLELLAN * Pharmacy [facility] [address] * Preadmission Environment Home with Family * ADLs Independent * Equipment Cane * List name and contact numbers for known caregivers / representatives who currently or will assist patient after discharge: MARLENY LAU (DAUGHTER) [phone] * Verbal permission to speak to the caregivers and representatives has been obtained from the patient. N/A * Community resources currently utilized None * Additional services required to return to the preadmission environment? No * Can the patient safely return to the preadmission environment? Yes * Has this patient been hospitalized within the prior 30 days at any hospital? No Patient Name: TATYANA MUNGUIA Page [id number] at 1058 All edits/amendments must be made on the electronic document DICTATION DATE: 01/07/19 105 DIRECTOR EMPLOYEE COMMUNICATIONS: YULISSA 01/07/19 1058 RPT#: [id number] DC DATE: STATUS: ADM IN [facility] [address] [place] [address] END OF REPORT
--- NOTE | 2019-01-07 12:56 | NUR ---
DISCHARGE PAPERS SIGNED, ALL QUESTIONS ANSWERED. IV TO LEFT AC DC'D, TIP INTACT. ESCORTED OUT BY WHEELCHAIR.
--- NOTE | 2019-01-07 16:09 | MORECARE ---
CASE MANAGEMENT DISCHARGE SUMMARY PATIENT: TATYANA MUNGUIA UNIT: [id number] ADM DATE: 01/04/19 AGE: 78 : 40 SEX: M ROOM/BED: D.2204 AUTHOR: SADAFDOC PHYSICIAN: REFERRING PHYSICIAN: JAMIE BAPTISTE MD DATE OF SERVICE: 01/07/19 Discharge Plan Patient Name: TATYANA MUNGUIA Facility: [facility]:[place] : 1940 Planned Disposition: Home or Self Care Anticipated Discharge Date: Discharge Date: 01/07/2019 Expected LOS: 0 Initial Reviewer: [email or web address] Initial Review Date: 01/03/2019 Generated: 01/07/19 5:09 pm Comments DCP- Discharge Planning Updated by [email or web address]: Merlyn Hastings on 01/07/19 9:[address] Patient Name: TATYANA MUNGUIA Admission Status: ER Accout number: [id number] Admission Date: 01-04-2019 : 1940 Admission Diagnosis: Attending: JAMIE BAPTISTE Current LOS: 3 Anticipated DC Date: Planned Disposition: Home or Self Care Primary Insurance: MEDICARE A & B Discharge Planning Comments: CM met with patient to complete initial dc planning assessment. CM educated patient on the CM role and verbal consent given by patient to complete assessment. Patient lives at home with his adult daughter and grandchildren. At discharge patient plans to return home and feels this is a safe discharge. CM discussed availability of home health, rehab services, and medical equipment. Patient denied known discharge needs at this time. He just started using a cane. 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 IMM served and explained. CM will continue to follow and will assist as needed with dc plans/needs. Oncology Account Specialist: Merlyn Hastings DCPIA - Discharge Planning Initial Assessment Updated by [id number]: Merlyn Hastings on 01/07/19 10:56 am * Is the patient Alert and Oriented? Yes * How many steps to enter\exit or inside your home? * PCP DR MCCLELLAN * Pharmacy [facility] [address] * Preadmission Environment Home with Family * ADLs Independent * Equipment Cane * List name and contact numbers for known caregivers / representatives who currently or will assist patient after discharge: MARLENY LAU (DAUGHTER) [phone] * Verbal permission to speak to the caregivers and representatives has been obtained from the patient. N/A * Community resources currently utilized None * Additional services required to return to the preadmission environment? No * Can the patient safely return to the preadmission environment? Yes * Has this patient been hospitalized within the prior 30 days at any hospital? 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
== END 2019-01-07 13:01 | disposition home or self-care (01) | DRG 552 ==
LOC: D.ER 14:42 → D.MS 18:59 → D.EDHOLD 18:59 → OBSVTIME 19:00 → D.MS 19:19
PROVIDERS: Emergency Medicine; ADMIT Legal Medicine; ATTEND Legal Medicine
DX: M54.5 Low back pain (principal); I10 Essential (primary) hypertension; I25.10 Atherosclerotic heart disease of native coronary artery without angina pectoris; J44.9 Chronic obstructive pulmonary disease, unspecified

== ENCOUNTER → 2019-03-05 14:20 | Outpatient (CLI) | payer MEDICARE ==
[2019-01-04 08:15] VITALS: BMI 34.5
== END | disposition home or self-care (01) ==
LOC: D.RAD 14:20
DX: R05 Cough (principal)

== ENCOUNTER 2020-04-07 08:00 | Outpatient (CLI) | payer OTHER ==
[2019-01-04 08:15] VITALS: BMI 34.5
== END 2020-04-07 08:01 | disposition home or self-care (01) ==
LOC: D.CT 08:00
PROVIDERS: ATTEND Radiology Diagnostic Radiology
DX: N28.1 Cyst of kidney, acquired (principal)